=== PATIENT | male | born 1940 | race Caucasian/White ===

== ENCOUNTER 2019-03-29 10:44 | Outpatient (RCR) | payer MEDICARE, SELFPAY ==
[2018-12-29 13:05] LABS: Basophils Percent Auto 0.5 % (0.2-1.2); Eosinophils Absolute Auto 0.1 K/mm3 (0-0.3); Eosinophils Percent Auto 3.4 % (0-4.4); Hematocrit 39.1 % (42.0-52.0); Hemoglobin 12.5 g/dL (14.0-18.0); Immature Granulocyte Absolute 0.01 K/mm3 (0.00-0.031); Immature Granulocyte Percent A 0.2 % (0-0.5); Lymphocytes Absolute Auto 1.49 K/mm3 (0.9-3.2); Lymphocytes Percent Auto 35.8 % (18.3-44.2); Mean Corpuscular Hemoglobin 27.2 pg (26-34); Monocytes Absolute Auto 0.4 K/mm3 (0.1-0.6); Monocytes Percent Auto 9.4 % (2.6-8.5); Neutrophils Absolute Auto 2.1 K/mm3 (1.3-6.7); Neutrophils Percent Auto 50.7 % (45.5-73.1); Platelet Count Result 134 k/mm3 (150-375); White Blood Count 4.2 K/mm3 (4.5-10.0)
[2018-12-29 13:23] LABS: INR 1.9; Prothrombin Time 21.7 Seconds (11.1-14.7)
[2018-12-29 13:27] LABS: Albumin Level 3.8 g/dL (3.5-5.1); Blood Urea Nitrogen 34 mg/dL (9-20); Calcium 9.5 mg/dL (8.4-10.2); Carbon Dioxide 23 mmol/L (22-30); Chloride 102 mmol/L (98-107); Estimated Glomerular Filt Rate 49; Glucose 165 mg/dL (75-110); Potassium 3.6 mmol/L (3.4-5.0); Sodium 138 mmol/L (137-145)
[2019-01-01 07:00] LABS: Tacrolimus Prograf 3.4 mcg/L
[2019-01-25 16:37] LABS: Basophils Percent Auto 0.3 % (0.2-1.2); Eosinophils Absolute Auto 0.1 K/mm3 (0-0.3); Hematocrit 40.1 % (42.0-52.0); Hemoglobin 12.7 g/dL (14.0-18.0); Immature Granulocyte Absolute 0.01 K/mm3 (0.00-0.031); Immature Granulocyte Percent A 0.2 % (0-0.5); Lymphocytes Absolute Auto 1.11 K/mm3 (0.9-3.2); Lymphocytes Percent Auto 18.3 % (18.3-44.2); Mean Corpuscular HGB Conc 31.7 g/dl (32-36); Mean Corpuscular Hemoglobin 27.3 pg (26-34); Mean Corpuscular Volume 86.1 fl (80-100); Mean Platelet Volume 10.9 fl (7.4-10.4); Monocytes Absolute Auto 0.4 K/mm3 (0.1-0.6); Monocytes Percent Auto 6.4 % (2.6-8.5); Neutrophils Absolute Auto 4.5 K/mm3 (1.3-6.7); Neutrophils Percent Auto 73.8 % (45.5-73.1); Platelet Count Result 137 k/mm3 (150-375); Red Blood Count 4.66 M/mm3 (4.6-6.20); Red Cell Distribution Width 15.2 % (11.5-14.5); White Blood Count 6.1 K/mm3 (4.5-10.0)
[2019-01-25 16:44] LABS: INR 2.5; Prothrombin Time 26.7 Seconds (11.1-14.7)
[2019-01-25 16:46] LABS: Albumin Level 4.2 g/dL (3.5-5.1); Blood Urea Nitrogen 49 mg/dL (9-20); Carbon Dioxide 20 mmol/L (22-30); Chloride 104 mmol/L (98-107); Estimated Glomerular Filt Rate 53; Glucose 138 mg/dL (75-110); Phosphorus 3.5 mg/dL (2.5-4.5); Potassium 4.1 mmol/L (3.4-5.0); Sodium 138 mmol/L (137-145); Uric Acid 7.4 mg/dL (3.5-8.5)
[2019-01-27 17:49] LABS: Tacrolimus Prograf 6.7 mcg/L
[2019-02-24 13:35] LABS: Basophils Percent Auto 0.6 % (0.2-1.2); Eosinophils Absolute Auto 0.1 K/mm3 (0-0.3); Eosinophils Percent Auto 2.2 % (0-4.4); Hemoglobin 12.6 g/dL (14.0-18.0); Immature Granulocyte Absolute 0.01 K/mm3 (0.00-0.031); Immature Granulocyte Percent A 0.2 % (0-0.5); Lymphocytes Absolute Auto 2.18 K/mm3 (0.9-3.2); Lymphocytes Percent Auto 40.3 % (18.3-44.2); Mean Corpuscular HGB Conc 32.3 g/dl (32-36); Mean Corpuscular Hemoglobin 27.9 pg (26-34); Mean Corpuscular Volume 86.5 fl (80-100); Mean Platelet Volume 11.9 fl (7.4-10.4); Monocytes Absolute Auto 0.6 K/mm3 (0.1-0.6); Monocytes Percent Auto 10.9 % (2.6-8.5); Neutrophils Absolute Auto 2.5 K/mm3 (1.3-6.7); Neutrophils Percent Auto 45.8 % (45.5-73.1); Platelet Count Result 141 k/mm3 (150-375); Red Blood Count 4.51 M/mm3 (4.6-6.20); Red Cell Distribution Width 14.9 % (11.5-14.5); White Blood Count 5.4 K/mm3 (4.5-10.0)
[2019-02-24 13:56] LABS: Alanine Aminotransferase 19 U/L (4-50); Albumin Level 3.9 g/dL (3.5-5.1); Alkaline Phosphatase 58 U/L (38-126); Aspartate Amino Transferase 31 U/L (17-59); Bilirubin,Total 0.6 mg/dL (0.2-1.3); Blood Urea Nitrogen 78 mg/dL (9-20); Calcium 9.8 mg/dL (8.4-10.2); Carbon Dioxide 24 mmol/L (22-30); Chloride 96 mmol/L (98-107); Cholesterol 195 mg/dL (0-200); Estimated Glomerular Filt Rate 32; Glucose 129 mg/dL (75-110); HDL Direct 31 mg/dL; Phosphorus 3.7 mg/dL (2.5-4.5); Potassium 3.4 mmol/L (3.4-5.0); Sodium 132 mmol/L (137-145); Triglycerides 342 mg/dL (<150); Uric Acid 8.3 mg/dL (3.5-8.5)
[2019-02-24 14:01] LABS: INR 2.6; Prothrombin Time 27.5 Seconds (11.1-14.7)
[2019-02-24 14:06] LABS: LDL Cholesterol Direct 66 mg/dL
[2019-03-29 13:21] LABS: INR 2.4; Prothrombin Time 25.6 Seconds (11.1-14.7)
== END 2019-03-29 23:59 | disposition home or self-care (01) ==
LOC: ANHWCLAB 10:44
PROVIDERS: PCP Internal Medicine
DX: Z51.81 Encounter for therapeutic drug level monitoring (principal); Z94.0 Kidney transplant status; I48.0 Paroxysmal atrial fibrillation; E78.49 Other hyperlipidemia; M80.80XD Other osteoporosis with current pathological fracture, unspecified site, subsequent encounter for fracture with routine healing; M1A.09X0 Idiopathic chronic gout, multiple sites, without tophus (tophi); Z79.01 Long term (current) use of anticoagulants; Z79.899 Other long term (current) drug therapy
CPT/HCPCS: 36415; 80053; 80061; 80069; 80197; 84100; 84550; 85025; 85610

== ENCOUNTER 2019-06-24 10:57 | Outpatient (RCR) | payer MEDICARE, SELFPAY ==
[2019-03-30 13:19] LABS: Basophils Percent Auto 0.4 % (0.2-1.2); Eosinophils Absolute Auto 0.1 K/mm3 (0-0.3); Eosinophils Percent Auto 2.2 % (0-4.4); Hematocrit 38.6 % (42.0-52.0); Hemoglobin 12.3 g/dL (14.0-18.0); Lymphocytes Absolute Auto 1.89 K/mm3 (0.9-3.2); Lymphocytes Percent Auto 42.4 % (18.3-44.2); Mean Corpuscular HGB Conc 31.9 g/dl (32-36); Mean Corpuscular Hemoglobin 27.8 pg (26-34); Mean Corpuscular Volume 87.1 fl (80-100); Mean Platelet Volume 11.4 fl (7.4-10.4); Monocytes Absolute Auto 0.4 K/mm3 (0.1-0.6); Neutrophils Absolute Auto 2.1 K/mm3 (1.3-6.7); Platelet Count Result 130 k/mm3 (150-375); Red Blood Count 4.43 M/mm3 (4.6-6.20); Red Cell Distribution Width 15.1 % (11.5-14.5); White Blood Count 4.5 K/mm3 (4.5-10.0)
[2019-03-30 13:28] LABS: Blood Urea Nitrogen 41 mg/dL (9-20); Carbon Dioxide 21 mmol/L (22-30); Chloride 98 mmol/L (98-107); Estimated Glomerular Filt Rate 53; Glucose 158 mg/dL (75-110); Phosphorus 3.5 mg/dL (2.5-4.5); Potassium 4.6 mmol/L (3.4-5.0); Sodium 133 mmol/L (137-145); Uric Acid 7.1 mg/dL (3.5-8.5)
[2019-04-02 08:38] LABS: Tacrolimus Prograf 4.4 mcg/L
[2019-04-25 13:31] LABS: Basophils Percent Auto 0.2 % (0.2-1.2); Eosinophils Absolute Auto 0.2 K/mm3 (0-0.3); Eosinophils Percent Auto 3.1 % (0-4.4); Hematocrit 36.5 % (42.0-52.0); Hemoglobin 11.5 g/dL (14.0-18.0); Immature Granulocyte Absolute 0.01 K/mm3 (0.00-0.031); Immature Granulocyte Percent A 0.2 % (0-0.5); Lymphocytes Absolute Auto 1.45 K/mm3 (0.9-3.2); Lymphocytes Percent Auto 30.3 % (18.3-44.2); Mean Corpuscular HGB Conc 31.5 g/dl (32-36); Mean Corpuscular Hemoglobin 27.4 pg (26-34); Mean Corpuscular Volume 87.1 fl (80-100); Mean Platelet Volume 11.4 fl (7.4-10.4); Monocytes Absolute Auto 0.4 K/mm3 (0.1-0.6); Neutrophils Absolute Auto 2.7 K/mm3 (1.3-6.7); Neutrophils Percent Auto 57.2 % (45.5-73.1); Platelet Count Result 145 k/mm3 (150-375); Red Blood Count 4.19 M/mm3 (4.6-6.20); Red Cell Distribution Width 15.2 % (11.5-14.5); White Blood Count 4.8 K/mm3 (4.5-10.0)
[2019-04-25 13:39] LABS: Blood Urea Nitrogen 53 mg/dL (9-20); Calcium 9.7 mg/dL (8.4-10.2); Carbon Dioxide 23 mmol/L (22-30); Chloride 101 mmol/L (98-107); Estimated Glomerular Filt Rate 45; Glucose 157 mg/dL (75-110); Potassium 3.9 mmol/L (3.4-5.0); Sodium 135 mmol/L (137-145); Uric Acid 6.3 mg/dL (3.5-8.5)
[2019-04-25 13:50] LABS: INR 1.7; Prothrombin Time 19.3 Seconds (11.1-14.7)
[2019-04-28 00:08] LABS: Tacrolimus Prograf 4.4 mcg/L
[2019-05-27 13:02] LABS: Basophils Percent Auto 0.5 % (0.2-1.2); Eosinophils Absolute Auto 0.1 K/mm3 (0-0.3); Hematocrit 39.7 % (42.0-52.0); Hemoglobin 12.3 g/dL (14.0-18.0); Immature Granulocyte Absolute 0.01 K/mm3 (0.00-0.031); Immature Granulocyte Percent A 0.2 % (0-0.5); Lymphocytes Absolute Auto 2.46 K/mm3 (0.9-3.2); Lymphocytes Percent Auto 41.1 % (18.3-44.2); Mean Corpuscular Hemoglobin 27.7 pg (26-34); Mean Corpuscular Volume 89.4 fl (80-100); Mean Platelet Volume 10.9 fl (7.4-10.4); Monocytes Absolute Auto 0.6 K/mm3 (0.1-0.6); Monocytes Percent Auto 9.2 % (2.6-8.5); Neutrophils Absolute Auto 2.8 K/mm3 (1.3-6.7); Platelet Count Result 130 k/mm3 (150-375); Red Blood Count 4.44 M/mm3 (4.6-6.20); Red Cell Distribution Width 15.4 % (11.5-14.5)
[2019-05-27 13:08] LABS: Alanine Aminotransferase 20 U/L (4-50); Albumin Level 4.2 g/dL (3.5-5.1); Alkaline Phosphatase 47 U/L (38-126); Aspartate Amino Transferase 33 U/L (17-59); Bilirubin,Total 0.6 mg/dL (0.2-1.3); Blood Urea Nitrogen 62 mg/dL (9-20); Calcium 9.4 mg/dL (8.4-10.2); Carbon Dioxide 23 mmol/L (22-30); Chloride 104 mmol/L (98-107); Cholesterol 177 mg/dL (0-200); Estimated Glomerular Filt Rate 45; Glucose 121 mg/dL (75-110); HDL Direct 39 mg/dL; Phosphorus 3.8 mg/dL (2.5-4.5); Potassium 3.9 mmol/L (3.4-5.0); Sodium 136 mmol/L (137-145); Triglycerides 169 mg/dL (<150); Uric Acid 5.1 mg/dL (3.5-8.5)
[2019-05-27 13:10] LABS: Platelet Estimate Decreased (Adequate)
[2019-05-27 13:11] LABS: INR 1.9; Prothrombin Time 21.1 Seconds (11.1-14.7)
[2019-05-27 13:19] LABS: LDL Cholesterol Direct 77 mg/dL
[2019-05-28 17:24] LABS: Tacrolimus Prograf 3.4 mcg/L
[2019-06-24 11:38] LABS: Basophils Percent Auto 0.2 % (0.2-1.2); Eosinophils Absolute Auto 0.1 K/mm3 (0-0.3); Eosinophils Percent Auto 2.9 % (0-4.4); Hemoglobin 12.8 g/dL (14.0-18.0); Immature Granulocyte Absolute 0.01 K/mm3 (0.00-0.031); Immature Granulocyte Percent A 0.2 % (0-0.5); Lymphocytes Absolute Auto 1.32 K/mm3 (0.9-3.2); Lymphocytes Percent Auto 31.6 % (18.3-44.2); Mean Corpuscular HGB Conc 30.5 g/dl (32-36); Mean Corpuscular Hemoglobin 28.2 pg (26-34); Mean Corpuscular Volume 92.5 fl (80-100); Mean Platelet Volume 10.6 fl (7.4-10.4); Monocytes Absolute Auto 0.3 K/mm3 (0.1-0.6); Monocytes Percent Auto 7.7 % (2.6-8.5); Neutrophils Absolute Auto 2.4 K/mm3 (1.3-6.7); Neutrophils Percent Auto 57.4 % (45.5-73.1); Platelet Count Result 100 k/mm3 (150-375); Red Blood Count 4.54 M/mm3 (4.6-6.20); Red Cell Distribution Width 16.1 % (11.5-14.5); White Blood Count 4.2 K/mm3 (4.5-10.0)
[2019-06-24 12:40] LABS: Albumin Level 4.1 g/dL (3.5-5.1); Blood Urea Nitrogen 53 mg/dL (9-20); Calcium 9.6 mg/dL (8.4-10.2); Carbon Dioxide 23 mmol/L (22-30); Chloride 103 mmol/L (98-107); Estimated Glomerular Filt Rate 49; Glucose 144 mg/dL (75-110); Phosphorus 3.7 mg/dL (2.5-4.5); Sodium 134 mmol/L (137-145); Uric Acid 4.7 mg/dL (3.5-8.5)
[2019-06-24 12:42] LABS: INR 2.1
[2019-06-27 15:57] LABS: Creatine Kinase 73 U/L (55-170)
[2019-06-28 07:11] LABS: Tacrolimus Prograf 3.2 mcg/L
== END 2019-06-28 23:59 | disposition home or self-care (01) ==
LOC: ANHWCLAB 10:57
PROVIDERS: PCP Internal Medicine
DX: Z51.81 Encounter for therapeutic drug level monitoring (principal); Z94.0 Kidney transplant status; E78.49 Other hyperlipidemia; M1A.09X0 Idiopathic chronic gout, multiple sites, without tophus (tophi); Z79.01 Long term (current) use of anticoagulants; Z79.899 Other long term (current) drug therapy
CPT/HCPCS: 36415; 80053; 80061; 80069; 80197; 82550; 84100; 84550; 85025; 85610

== ENCOUNTER 2019-08-15 10:12 | Outpatient (CLI) | payer MEDICARE, SELFPAY ==
[2019-08-15 14:16] LABS: Blood Urea Nitrogen 44 mg/dL (9-20); Calcium 9.1 mg/dL (8.4-10.2); Carbon Dioxide 23 mmol/L (22-30); Chloride 107 mmol/L (98-107); Estimated Glomerular Filt Rate 49; Glucose 165 mg/dL (75-110); Potassium 4.2 mmol/L (3.4-5.0); Sodium 136 mmol/L (137-145)
== END 2019-08-15 10:13 | disposition home or self-care (01) ==
PROVIDERS: PCP Internal Medicine
DX: I50.32 Chronic diastolic (congestive) heart failure (principal)
CPT/HCPCS: 36415; 80048

== ENCOUNTER 2019-10-25 11:35 | Outpatient (RCR) | payer MEDICARE, SELFPAY ==
[2019-07-27 12:37] LABS: Basophils Percent Auto 0.4 % (0.2-1.2); Eosinophils Absolute Auto 0.1 K/mm3 (0-0.3); Hematocrit 35.7 % (42.0-52.0); Hemoglobin 11.5 g/dL (14.0-18.0); Immature Granulocyte Absolute 0.01 K/mm3 (0.00-0.031); Immature Granulocyte Percent A 0.2 % (0-0.5); Lymphocytes Absolute Auto 1.94 K/mm3 (0.9-3.2); Lymphocytes Percent Auto 41.4 % (18.3-44.2); Mean Corpuscular HGB Conc 32.2 g/dl (32-36); Mean Corpuscular Hemoglobin 28.5 pg (26-34); Mean Corpuscular Volume 88.4 fl (80-100); Mean Platelet Volume 11.4 fl (7.4-10.4); Monocytes Absolute Auto 0.4 K/mm3 (0.1-0.6); Monocytes Percent Auto 9.2 % (2.6-8.5); Neutrophils Absolute Auto 2.2 K/mm3 (1.3-6.7); Neutrophils Percent Auto 45.8 % (45.5-73.1); Platelet Count Result 118 k/mm3 (150-375); Red Blood Count 4.04 M/mm3 (4.6-6.20); Red Cell Distribution Width 15.9 % (11.5-14.5); White Blood Count 4.7 K/mm3 (4.5-10.0)
[2019-07-27 12:47] LABS: INR 1.7; Prothrombin Time 19.8 Seconds (11.1-14.7)
[2019-07-27 12:49] LABS: Albumin Level 4.1 g/dL (3.5-5.1); Blood Urea Nitrogen 46 mg/dL (9-20); Calcium 9.5 mg/dL (8.4-10.2); Carbon Dioxide 23 mmol/L (22-30); Chloride 107 mmol/L (98-107); Estimated Glomerular Filt Rate 49; Glucose 110 mg/dL (75-110); Phosphorus 3.6 mg/dL (2.5-4.5); Potassium 3.8 mmol/L (3.4-5.0); Sodium 138 mmol/L (137-145)
[2019-07-29 15:33] LABS: Tacrolimus Prograf 6.2 mcg/L
[2019-08-24 11:13] LABS: Basophils Percent Auto 0.4 % (0.2-1.2); Eosinophils Absolute Auto 0.2 K/mm3 (0-0.3); Eosinophils Percent Auto 3.7 % (0-4.4); Hematocrit 36.3 % (42.0-52.0); Hemoglobin 11.7 g/dL (14.0-18.0); Immature Granulocyte Absolute 0.01 K/mm3 (0.00-0.031); Immature Granulocyte Percent A 0.2 % (0-0.5); Lymphocytes Absolute Auto 1.78 K/mm3 (0.9-3.2); Lymphocytes Percent Auto 36.8 % (18.3-44.2); Mean Corpuscular HGB Conc 32.2 g/dl (32-36); Mean Corpuscular Hemoglobin 28.7 pg (26-34); Mean Platelet Volume 11.4 fl (7.4-10.4); Monocytes Absolute Auto 0.5 K/mm3 (0.1-0.6); Neutrophils Absolute Auto 2.3 K/mm3 (1.3-6.7); Neutrophils Percent Auto 47.9 % (45.5-73.1); Platelet Count Result 130 k/mm3 (150-375); Red Blood Count 4.08 M/mm3 (4.6-6.20); Red Cell Distribution Width 15.6 % (11.5-14.5); White Blood Count 4.8 K/mm3 (4.5-10.0)
[2019-08-24 11:22] LABS: INR 2.3; Prothrombin Time 25.1 Seconds (11.1-14.7)
[2019-08-24 11:23] LABS: Alanine Aminotransferase 33 U/L (4-50); Albumin Level 4.4 g/dL (3.5-5.1); Alkaline Phosphatase 52 U/L (38-126); Aspartate Amino Transferase 35 U/L (17-59); Bilirubin,Total 0.6 mg/dL (0.2-1.3); Blood Urea Nitrogen 50 mg/dL (9-20); Calcium 9.6 mg/dL (8.4-10.2); Carbon Dioxide 25 mmol/L (22-30); Chloride 102 mmol/L (98-107); Cholesterol 177 mg/dL (0-200); Estimated Glomerular Filt Rate 42; Glucose 134 mg/dL (75-110); HDL Direct 38 mg/dL; Phosphorus 3.6 mg/dL (2.5-4.5); Potassium 4.2 mmol/L (3.4-5.0); Sodium 135 mmol/L (137-145); Triglycerides 154 mg/dL (<150)
[2019-08-24 11:33] LABS: LDL Cholesterol Direct 80 mg/dL
[2019-08-25 23:06] LABS: Tacrolimus Prograf 3.5 mcg/L
[2019-09-27 13:09] LABS: Basophils Percent Auto 0.2 % (0.2-1.2); Eosinophils Absolute Auto 0.2 K/mm3 (0-0.3); Eosinophils Percent Auto 2.7 % (0-4.4); Hematocrit 35.1 % (42.0-52.0); Hemoglobin 11.3 g/dL (14.0-18.0); Immature Granulocyte Absolute 0.02 K/mm3 (0.00-0.031); Immature Granulocyte Percent A 0.4 % (0-0.5); Lymphocytes Absolute Auto 1.34 K/mm3 (0.9-3.2); Mean Corpuscular HGB Conc 32.2 g/dl (32-36); Mean Corpuscular Hemoglobin 28.2 pg (26-34); Mean Corpuscular Volume 87.5 fl (80-100); Mean Platelet Volume 11.3 fl (7.4-10.4); Monocytes Absolute Auto 0.5 K/mm3 (0.1-0.6); Monocytes Percent Auto 8.4 % (2.6-8.5); Neutrophils Absolute Auto 3.6 K/mm3 (1.3-6.7); Neutrophils Percent Auto 64.3 % (45.5-73.1); Platelet Count Result 132 k/mm3 (150-375); Red Blood Count 4.01 M/mm3 (4.6-6.20); Red Cell Distribution Width 14.7 % (11.5-14.5); White Blood Count 5.6 K/mm3 (4.5-10.0)
[2019-09-27 13:20] LABS: INR 1.3; Prothrombin Time 15.8 Seconds (11.1-14.7)
[2019-09-27 13:22] LABS: Alanine Aminotransferase 31 U/L (4-50); Albumin Level 4.2 g/dL (3.5-5.1); Alkaline Phosphatase 51 U/L (38-126); Anion Gap 13.7 mmol/L (7-16); Aspartate Amino Transferase 34 U/L (17-59); Bilirubin,Total 0.6 mg/dL (0.2-1.3); Blood Urea Nitrogen 53 mg/dL (9-20); Calcium 9.2 mg/dL (8.4-10.2); Carbon Dioxide 25 mmol/L (22-30); Chloride 99 mmol/L (98-107); Cholesterol 164 mg/dL (0-200); Estimated Glomerular Filt Rate 39; Glucose 219 mg/dL (75-110); HDL Direct 36 mg/dL; Phosphorus 3.2 mg/dL (2.5-4.5); Potassium 3.7 mmol/L (3.4-5.0); Sodium 134 mmol/L (137-145); Triglycerides 161 mg/dL (<150); Uric Acid 4.8 mg/dL (3.5-8.5)
[2019-09-27 13:33] LABS: LDL Cholesterol Direct 80 mg/dL
[2019-09-30 00:31] LABS: Tacrolimus Prograf 6.6 mcg/L
[2019-10-25 12:17] LABS: Basophils Percent Auto 0.5 % (0.2-1.2); Eosinophils Absolute Auto 0.2 K/mm3 (0-0.3); Eosinophils Percent Auto 3.2 % (0-4.4); Hematocrit 38.6 % (42.0-52.0); Hemoglobin 12.5 g/dL (14.0-18.0); Immature Granulocyte Absolute 0.02 K/mm3 (0.00-0.031); Immature Granulocyte Percent A 0.3 % (0-0.5); Lymphocytes Absolute Auto 1.77 K/mm3 (0.9-3.2); Mean Corpuscular HGB Conc 32.4 g/dl (32-36); Mean Corpuscular Hemoglobin 28.3 pg (26-34); Mean Corpuscular Volume 87.3 fl (80-100); Mean Platelet Volume 11.7 fl (7.4-10.4); Monocytes Absolute Auto 0.5 K/mm3 (0.1-0.6); Monocytes Percent Auto 7.9 % (2.6-8.5); Neutrophils Percent Auto 61.1 % (45.5-73.1); Platelet Count Result 153 k/mm3 (150-375); Red Blood Count 4.42 M/mm3 (4.6-6.20); Red Cell Distribution Width 15.2 % (11.5-14.5); White Blood Count 6.6 K/mm3 (4.5-10.0)
[2019-10-25 12:25] LABS: INR 2.6; Prothrombin Time 27.2 Seconds (11.1-14.7)
[2019-10-25 12:33] LABS: Alanine Aminotransferase 31 U/L (4-50); Albumin Level 4.4 g/dL (3.5-5.1); Alkaline Phosphatase 62 U/L (38-126); Anion Gap 10 mmol/L (8-16); Aspartate Amino Transferase 36 U/L (17-59); Bilirubin,Total 0.7 mg/dL (0.2-1.3); Blood Urea Nitrogen 64 mg/dL (9-20); Calcium 9.5 mg/dL (8.4-10.2); Carbon Dioxide 23 mmol/L (22-30); Chloride 103 mmol/L (98-107); Cholesterol 187 mg/dL (0-200); Estimated Glomerular Filt Rate 36; Glucose 185 mg/dL (75-110); HDL Direct 35 mg/dL; Phosphorus 3.6 mg/dL (2.5-4.5); Sodium 136 mmol/L (137-145); Triglycerides 257 mg/dL (<150)
[2019-10-25 12:44] LABS: LDL Cholesterol Direct 77 mg/dL
[2019-10-27 07:53] LABS: Tacrolimus Prograf 8.1 mcg/L
== END 2019-10-25 23:59 | disposition home or self-care (01) ==
LOC: ANHLAB 11:35
PROVIDERS: PCP Internal Medicine; Referring Provider Internal Medicine
DX: I48.0 Paroxysmal atrial fibrillation (principal); E78.49 Other hyperlipidemia; M1A.09X0 Idiopathic chronic gout, multiple sites, without tophus (tophi); Z94.0 Kidney transplant status; Z79.899 Other long term (current) drug therapy
CPT/HCPCS: 36415; 80053; 80061; 80069; 80197; 84100; 84550; 85025; 85610

== ENCOUNTER 2019-10-25 11:37 | Outpatient (CLI) | payer MEDICARE, SELFPAY ==
[2019-10-25 12:41] LABS: Hemoglobin A1C 7.5 % (<5.7)
== END 2019-10-25 11:38 | disposition home or self-care (01) ==
PROVIDERS: PCP Internal Medicine; Visit Provider Internal Medicine
DX: I50.33 Acute on chronic diastolic (congestive) heart failure (principal); Z79.899 Other long term (current) drug therapy; R73.09 Other abnormal glucose
CPT/HCPCS: 36415; 80053; 80061; 80197; 83036; 84100; 85025; 85610

== ENCOUNTER 2019-11-04 19:04 | Emergency (ER) | payer MEDICARE, SELFPAY ==
--- NOTE | ~2019-11-04 | CT_ITS ---
EXAMINATION: CT brain wo con, CT cervical spine wo con EXAM DATE: 11/04/2019 20:24 INDICATION: Fall, head laceration. TECHNIQUE: Spiral CT of the head was performed without contrast. Axial, coronal and sagittal images were reviewed. Spiral CT of the cervical spine was performed without contrast. Axial images were rev iewed. Coronal and sagittal reformatted images were also reviewed. The dose-length product (DLP) fo r this examination was 681.00 (accession [id number]), 475.26 (accession [id number]) mGy-cm. The exposure was tailored according to patient size, and iterative reconstruction (ASIR) was used as additional dose reduction technique. Comparison is made to prior examination from 06/12/2016. FINDINGS: HEAD CT: There is moderate-sized acute subdural hematoma along the anteriorly falx, probably on both sides. Thickest region measures about 1.2 cm. There is no acute intraparenchymal hemorrhage. No evid ence of intraparenchymal brain mass lesion. No evidence of acute infarction. There is mild periventr icular and subcortical hypodensity, nonspecific but probably related to small vessel ischemic disease . There is mild prominence of the sulci and ventricles related to cerebral atrophy. There is intr acranial carotid arteriosclerosis. There is no mass effect or midline shift. There is no obstructiv e hydrocephalus suspected. There are no acute calvarial fractures. The orbits are unremarkable. Mo derate sized left vertex scalp hematoma. The visualized sinuses and mastoid air cells are well aerate d. CERVICAL CT: Moderate to severe cervical spondylosis. There is no evidence of acute cervical fracture . The odontoid process is intact. Pre-dens space is normal. Prevertebral soft tissue is normal. T here are no soft tissue abnormalities identified. There is no disc space widening or traumatic verte bral body subluxation suspected. Vertebral body and disc heights are well-maintained. A detailed l evel by level evaluation of spondylosis can be added as addendum if requested. IMPRESSION: 1. Moderate-sized acute subdural hematoma along the falx. 2. Left scalp laceration, hematoma. 3. Cervical spondylosis without acute findings. I discussed subdural hematoma with Nabil Bobo PA-C at 11/04/2019 20:40 CDT. Reviewed, dictated and finalized at location A. IMPRESSION: 1. Moderate-sized acute subdural hematoma along the falx. 2. Left scalp laceration, hematoma. 3. Cervical spondylosis without acute findings. I discussed subdural hematoma with Nabil Bobo PA-C at 11/04/2019 20:40 CD T.
--- NOTE | ~2019-11-04 | XR_ITS ---
EXAMINATION: XR chest 1V portable EXAM DATE: 11/04/2019 20:54 INDICATION: Fall down stairs, head injury. TECHNIQUE: Portable AP frontal chest x-ray was obtained. Comparison is made to prior examination from 03/10/2017. FINDINGS: Sternotomy wires are present without findings to suggest sternal dehiscence. Cardiac valve replacement. There is single lead pacemaker/AICD device seen with tip projecting over the expected lo cation of right ventricle. The cardiac silhouette is enlarged. There is pulmonary vascular congestion . Some prominent reticulation, could be chronic interstitial lung disease and/or mild pulmonary edema . Please clinically correlate. There are cholecystectomy clips. There is no pneumothorax suspected. T here are no pleural effusions. IMPRESSION: 1. Congestive changes, possible mild CHF exacerbation. 2. Possible underlying chronic interstitial lung disease. Reviewed, dictated and finalized at location A.
[2019-11-04 19:16] VITALS: BP 176/91; PULSE 64; RESP 16; TEMP 37; O2SAT 99
--- NOTE | 2019-11-04 19:53 | ECG_ITS ---
Measurements Intervals [place] Rate: 66 P: VT: 0 QRS: -55 QRSD: 211 T: 106 QT: 519 QTc: 547 Interpretive Statements ELECTRONIC VENTRICULAR PACEMAKER NO FURTHER INTERPRETATION IS POSSIBLE ATYPICAL ECG Electronically Signed On 11-05-2019 7:38:39 CDT by Maldonado Rizvi D.O.
--- NOTE | 2019-11-04 19:54 | ED.FALL ---
HPI - Fall General Chief Complaint: Fall <RAINA Engladn Last Filed: 11/04/19 21:27> Stated Complaint: FALL HEAD LAC <RAINA England Last Filed: 11/04/19 21:27> Time Seen by Provider: 11/04/19 19:47 <RAINA England Last Filed: 11/04/19 21:27> Source: patient <RAINA England Last Filed: 11/04/19 21:27> Mode of arrival: ambulatory <RAINA England Last Filed: 11/04/19 21:27> Limitations: no limitations <RAINA England Last Filed: 11/04/19 21:27> History of Present Illness HPI Narrative: Patient is an 79-year-old male who presents to emergency department for evaluation of posterior head trauma patient reportedly missed stepped falling striking the back of his head is amnestic to the etiology believes he misstep but also is unsure as to loss of consciousness patient's got to him promptly noting that he was alert and oriented but does have become slightly more confused since patient presents per EMS. Patient is on warfarin for atrial fibrillation patient was recently released from [facility] after having a medication reaction that resulted in worsening heart failure. Patient is a kidney transplant recipient. Patient is managed at [facility]. Patient's only complaint is posterior head pain presents with a GCS of 15. Patient is answering questions appropriately on arrival. notes that she felt as though her was becoming slightly more confused after the head injury <RAINA England Last Filed: 11/04/19 21:27> Related Data Home Medications: Home Medications Medication Instructions Recorded Confirmed azelastine 137 mcg (0.1 %) nasal 1 spray NASAL Q12H 01/17/19 11/02/19 spray aerosol ezetimibe 10 mg tablet 10 mg PO DAILY 01/17/19 11/02/19 prednisone 5 mg tablet 5 mg PO DAILY 01/17/19 11/02/19 tacrolimus 0.75 mg tablet,extended 0.75 mg PO DAILY 01/17/19 11/02/19 release 24 hr warfarin 6 mg tablet 6 mg PO 5XW 01/17/19 11/02/19 acetaminophen 500 mg tablet 500 mg PO Q4H PRN 01/18/19 11/02/19 amoxicillin 500 mg capsule 500 mg PO Q12H 01/18/19 11/02/19 cholecalciferol (vitamin D3) 50 2,000 unit PO DAILY 01/18/19 11/02/19 mcg (2,000 unit) capsule loratadine 10 mg tablet 10 mg PO DAILY 01/18/19 11/02/19 sour hoover extract 1,000 mg mg PO 01/18/19 11/02/19 capsule icosapent ethyl 1 gram capsule 2 gm PO BID 04/06/19 11/02/19 allopurinol 100 mg tablet 300 mg PO DAILY tablet 10/25/19 11/02/19 carvedilol 6.25 mg tablet 6.25 mg PO Q12H 10/25/19 11/02/19 colchicine 0.6 mg tablet 0.6 mg PO .MWF tablet 10/25/19 11/02/19 furosemide 40 mg tablet 80 mg PO BID tablet 10/25/19 11/02/19 gabapentin 100 mg capsule 100 mg PO BID 10/25/19 11/02/19 hydralazine 50 mg tablet 25 mg PO TID tablet 10/25/19 11/02/19 isosorbide dinitrate 30 mg tablet 30 mg PO TID 10/25/19 11/02/19 multivitamin 1 tablet PO DAILY 10/25/19 11/02/19 potassium chloride 20 mEq 40 meq PO DAILY tablet 10/25/19 11/02/19 tablet,extended release flash glucose sensor #1 each 11/02/19 11/02/19 <Nabil Bobo PA-C - Last Filed: 11/04/19 21:27> Allergies/Adverse Reactions: Allergies Allergy/AdvReac Type Severity Reaction Status Date / Time Heparin Analogues Allergy Unknown unknown Verified 10/25/19 10:24 morphine Allergy Unknown unknown Verified 10/25/19 10:24 <Nabil Bobo PA-C - Last Filed: 11/04/19 21:27> Review of Systems Review of Systems: All systems reviewed & are unremarkable except as noted in HPI and below <Nabil Bobo PA-C - Last Filed: 11/04/19 21:27> [facility] Past Medical History Medical History: Medical History A-fib Blindness of left eye BMI 30.0-30.9,adult BMI 31.0-31.9,adult Cellulitis of left lower extremity Dependent edema Depression Diastolic congestive heart failure DM type 2 (diabetes mellitus, type 2) Elevated hemoglobin A1c En
[2019-11-04 19:58] VITALS: BP 164/75; PULSE 60; RESP 16; O2SAT 98
[2019-11-04 20:14] LABS: Eosinophils Percent Auto 0.7 % (0-4.4); Hematocrit 34.6 % (42.0-52.0); Hemoglobin 11.3 g/dL (14.0-18.0); Immature Granulocyte Absolute 0.02 K/mm3 (0.00-0.031); Immature Granulocyte Percent A 0.3 % (0-0.5); Lymphocytes Absolute Auto 1.76 K/mm3 (0.9-3.2); Lymphocytes Percent Auto 29.6 % (18.3-44.2); Mean Corpuscular HGB Conc 32.7 g/dl (32-36); Mean Corpuscular Hemoglobin 28.4 pg (26-34); Mean Corpuscular Volume 86.9 fl (80-100); Mean Platelet Volume 11.4 fl (7.4-10.4); Monocytes Absolute Auto 0.4 K/mm3 (0.1-0.6); Monocytes Percent Auto 6.9 % (2.6-8.5); Neutrophils Absolute Auto 3.7 K/mm3 (1.3-6.7); Neutrophils Percent Auto 62.5 % (45.5-73.1); Platelet Count Result 130 k/mm3 (150-375); Red Blood Count 3.98 M/mm3 (4.6-6.20); Red Cell Distribution Width 15.1 % (11.5-14.5); White Blood Count 5.9 K/mm3 (4.5-10.0)
[2019-11-04 20:24] LABS: INR 2.2; Partial Thromboplastin Time 33.2 SECONDS (22.3-36.8); Prothrombin Time 24.3 Seconds (11.1-14.7)
[2019-11-04 20:25] LABS: Anion Gap 10 mmol/L (8-16); Blood Urea Nitrogen 74 mg/dL (9-20); Calcium 9.5 mg/dL (8.4-10.2); Carbon Dioxide 24 mmol/L (22-30); Chloride 102 mmol/L (98-107); Estimated CRCL calculation 35 ml/min; Estimated Glomerular Filt Rate 36; Glucose 175 mg/dL (75-110); Potassium 4.5 mmol/L (3.4-5.0); Sodium 136 mmol/L (137-145)
[2019-11-04] MEDS: SODIUM CHLORIDE 0.9% IV 250 ML 30 ML IV CONT (21:24)
[2019-11-04 21:30] VITALS: BP 134/72; PULSE 72; RESP 18; TEMP 36.7; O2SAT 98
--- NOTE | 2019-11-04 22:00 | PC.NURSE ---
fluids continued on floor. stop time per floor nurse.
== END 2019-11-04 21:31 | disposition short-term general hospital (02) ==
PROVIDERS: Emergency Medicine Emergency Medical Services; Emergency Provider Emergency Medicine; PCP Internal Medicine
DX: S06.5X9A Traumatic subdural hemorrhage with loss of consciousness of unspecified duration, initial encounter (principal); W01.0XXA Fall on same level from slipping, tripping and stumbling without subsequent striking against object, initial encounter; S01.91XA Laceration without foreign body of unspecified part of head, initial encounter; Z95.0 Presence of cardiac pacemaker; I48.91 Unspecified atrial fibrillation; E11.9 Type 2 diabetes mellitus without complications; M10.9 Gout, unspecified; Z79.01 Long term (current) use of anticoagulants; I50.30 Unspecified diastolic (congestive) heart failure; Z96.652 Presence of left artificial knee joint; Z94.0 Kidney transplant status
CPT/HCPCS: 36415; 70450; 71045; 72125; 80048; 85025; 85610; 85730; 86900; 86901; 93005; 96374; 99285; C9132; J7050

== ENCOUNTER 2019-11-18 14:07 | Outpatient (CLI) | payer MEDICARE, SELFPAY | END 2019-11-18 14:08 | disposition home or self-care (01) | PROVIDERS: PCP Internal Medicine | DX: I50.33 Acute on chronic diastolic (congestive) heart failure (principal) | CPT/HCPCS: 36415 ==

== ENCOUNTER 2019-11-21 12:07 | Outpatient (CLI) | payer MEDICARE, SELFPAY ==
[2019-11-21 13:43] LABS: Anion Gap 7 mmol/L (8-16); Blood Urea Nitrogen 71 mg/dL (9-20); Calcium 9.9 mg/dL (8.4-10.2); Carbon Dioxide 29 mmol/L (22-30); Chloride 102 mmol/L (98-107); Estimated Glomerular Filt Rate 39; Glucose 131 mg/dL (75-110); Potassium 4.1 mmol/L (3.4-5.0); Sodium 138 mmol/L (137-145)
== END 2019-11-21 12:08 | disposition home or self-care (01) ==
PROVIDERS: PCP Internal Medicine
DX: I50.33 Acute on chronic diastolic (congestive) heart failure (principal)
CPT/HCPCS: 36415; 80048

== ENCOUNTER 2020-01-25 15:16 | Outpatient (RCR) | payer MEDICARE, SELFPAY ==
[2019-11-02 14:12] LABS: Uric Acid 4.7 mg/dL (3.5-8.5)
[2019-12-02 11:38] LABS: Basophils Percent Auto 0.5 % (0.2-1.2); Eosinophils Absolute Auto 0.2 K/mm3 (0-0.3); Eosinophils Percent Auto 3.6 % (0-4.4); Hematocrit 34.6 % (42.0-52.0); Immature Granulocyte Absolute 0.01 K/mm3 (0.00-0.031); Immature Granulocyte Percent A 0.2 % (0-0.5); Lymphocytes Absolute Auto 1.86 K/mm3 (0.9-3.2); Lymphocytes Percent Auto 42.3 % (18.3-44.2); Mean Corpuscular HGB Conc 31.8 g/dl (32-36); Mean Corpuscular Hemoglobin 28.1 pg (26-34); Mean Corpuscular Volume 88.3 fl (80-100); Mean Platelet Volume 11.2 fl (7.4-10.4); Monocytes Absolute Auto 0.5 K/mm3 (0.1-0.6); Neutrophils Absolute Auto 1.8 K/mm3 (1.3-6.7); Neutrophils Percent Auto 41.4 % (45.5-73.1); Platelet Count Result 123 k/mm3 (150-375); Red Blood Count 3.92 M/mm3 (4.6-6.20); Red Cell Distribution Width 15.1 % (11.5-14.5); White Blood Count 4.4 K/mm3 (4.5-10.0)
[2019-12-02 11:49] LABS: Alanine Aminotransferase 15 U/L (4-50); Albumin Level 4.4 g/dL (3.5-5.1); Alkaline Phosphatase 61 U/L (38-126); Anion Gap 10 mmol/L (8-16); Aspartate Amino Transferase 32 U/L (17-59); Bilirubin,Total 0.7 mg/dL (0.2-1.3); Blood Urea Nitrogen 80 mg/dL (9-20); Calcium 9.4 mg/dL (8.4-10.2); Carbon Dioxide 26 mmol/L (22-30); Chloride 103 mmol/L (98-107); Cholesterol 137 mg/dL (0-200); Estimated Glomerular Filt Rate 36; Glucose 111 mg/dL (75-110); HDL Direct 30 mg/dL; Phosphorus 4.1 mg/dL (2.5-4.5); Potassium 4.3 mmol/L (3.4-5.0); Sodium 139 mmol/L (137-145); Triglycerides 129 mg/dL (<150); Uric Acid 4.5 mg/dL (3.5-8.5)
[2019-12-02 11:51] LABS: Prothrombin Time 13.2 Seconds (11.1-14.7)
[2019-12-02 12:00] LABS: LDL Cholesterol Direct 63 mg/dL
[2019-12-06 10:55] LABS: Tacrolimus Prograf 5.1 mcg/L
[2019-12-27 12:53] LABS: Basophils Percent Auto 0.2 % (0.2-1.2); Eosinophils Absolute Auto 0.2 K/mm3 (0-0.3); Eosinophils Percent Auto 3.2 % (0-4.4); Hematocrit 35.6 % (42.0-52.0); Hemoglobin 11.3 g/dL (14.0-18.0); Immature Granulocyte Absolute 0.01 K/mm3 (0.00-0.031); Immature Granulocyte Percent A 0.2 % (0-0.5); Lymphocytes Absolute Auto 1.34 K/mm3 (0.9-3.2); Lymphocytes Percent Auto 28.8 % (18.3-44.2); Mean Corpuscular HGB Conc 31.7 g/dl (32-36); Mean Corpuscular Hemoglobin 27.5 pg (26-34); Mean Corpuscular Volume 86.6 fl (80-100); Mean Platelet Volume 11.5 fl (7.4-10.4); Monocytes Absolute Auto 0.4 K/mm3 (0.1-0.6); Monocytes Percent Auto 7.5 % (2.6-8.5); Neutrophils Absolute Auto 2.8 K/mm3 (1.3-6.7); Neutrophils Percent Auto 60.1 % (45.5-73.1); Platelet Count Result 120 k/mm3 (150-375); Red Blood Count 4.11 M/mm3 (4.6-6.20); Red Cell Distribution Width 14.9 % (11.5-14.5); White Blood Count 4.7 K/mm3 (4.5-10.0)
[2019-12-27 13:01] LABS: Prothrombin Time 13.7 Seconds (11.1-14.7)
[2019-12-27 13:07] LABS: Albumin Level 4.4 g/dL (3.5-5.1); Anion Gap 8 mmol/L (8-16); Blood Urea Nitrogen 72 mg/dL (9-20); Calcium 9.6 mg/dL (8.4-10.2); Carbon Dioxide 27 mmol/L (22-30); Chloride 101 mmol/L (98-107); Estimated Glomerular Filt Rate 36; Glucose 130 mg/dL (75-110); Phosphorus 3.7 mg/dL (2.5-4.5); Potassium 4.2 mmol/L (3.4-5.0); Sodium 136 mmol/L (137-145); Uric Acid 4.5 mg/dL (3.5-8.5)
[2019-12-29 19:23] LABS: Tacrolimus Prograf 7.8 mcg/L
[2020-01-25 16:12] LABS: INR 1.7; Prothrombin Time 20.1 Seconds (11.1-14.7)
[2020-01-25 16:17] LABS: Basophils Percent Auto 0.4 % (0.2-1.2); Eosinophils Absolute Auto 0.1 K/mm3 (0-0.3); Eosinophils Percent Auto 1.5 % (0-4.4); Hematocrit 33.3 % (42.0-52.0); Hemoglobin 10.7 g/dL (14.0-18.0); Immature Granulocyte Absolute 0.01 K/mm3 (0.00-0.031); Immature Granulocyte Percent A 0.2 % (0-0.5); Lymphocytes Absolute Auto 1.17 K/mm3 (0.9-3.2); Lymphocytes Percent Auto 25.8 % (18.3-44.2); Mean Corpuscular HGB Conc 32.1 g/dl (32-36); Mean Corpuscular Hemoglobin 27.7 pg (26-34); Mean Corpuscular Volume 86.3 fl (80-100); Monocytes Absolute Auto 0.3 K/mm3 (0.1-0.6); Monocytes Percent Auto 7.1 % (2.6-8.5); Neutrophils Absolute Auto 2.9 K/mm3 (1.3-6.7); Platelet Count Result 102 k/mm3 (150-375); Red Blood Count 3.86 M/mm3 (4.6-6.20); Red Cell Distribution Width 15.5 % (11.5-14.5); White Blood Count 4.5 K/mm3 (4.5-10.0)
[2020-01-25 16:21] LABS: Anion Gap 10 mmol/L (8-16); Blood Urea Nitrogen 73 mg/dL (9-20); Calcium 9.2 mg/dL (8.4-10.2); Carbon Dioxide 22 mmol/L (22-30); Chloride 101 mmol/L (98-107); Estimated Glomerular Filt Rate 39; Glucose 130 mg/dL (75-110); Phosphorus 4.3 mg/dL (2.5-4.5); Sodium 133 mmol/L (137-145); Uric Acid 4.5 mg/dL (3.5-8.5)
[2020-01-28 00:27] LABS: Tacrolimus Prograf 7.2 mcg/L
== END 2020-01-31 23:59 | disposition home or self-care (01) ==
LOC: ANHLAB 15:16
PROVIDERS: PCP Internal Medicine; Referring Provider Internal Medicine
DX: M1A.09X0 Idiopathic chronic gout, multiple sites, without tophus (tophi) (principal); I48.0 Paroxysmal atrial fibrillation; E78.49 Other hyperlipidemia; Z94.0 Kidney transplant status; Z79.01 Long term (current) use of anticoagulants
CPT/HCPCS: 36415; 80053; 80061; 80069; 80197; 84550; 85025; 85610

== ENCOUNTER 2020-01-25 15:16 | Outpatient (RCR) | payer MEDICARE, SELFPAY ==
[2020-01-24 10:54] VITALS: BMI 30.2
[2020-01-24 11:03] VITALS: BMI 30.2
== END 2020-03-05 14:13 | disposition home or self-care (01) ==
LOC: ANHDMC 15:16
PROVIDERS: PCP Internal Medicine; Visit Provider Internal Medicine
DX: E11.9 Type 2 diabetes mellitus without complications (principal); Z71.89 Other specified counseling; Z71.3 Dietary counseling and surveillance
CPT/HCPCS: 97802; G0108

== ENCOUNTER 2020-02-22 14:05 | Outpatient (CLI) | payer MEDICARE, SELFPAY ==
[2020-02-22 14:52] LABS: Add Urine Microscopic? NO; Appearance Urine Clear (Clear); Bilirubin Urine Negative (Negative); Blood Urine Negative (Negative); Color Urine Yellow (Yellow); Glucose Urine UA Negative (Negative); Ketones Urine Negative (Negative); Leukocyte Esterase Ur Negative LEU/UL (NEGATIVE); Nitrate Urine Negative (Negative); Protein Urine Negative (Negative); Specific Grav Ur 1.013 (1.001-1.035); Urobilinogen Urine Negative mg/dL (<2.0)
[2020-02-22 15:02] LABS: Creatinine Urine 62.7 mg/dL; Total Protein Urine Random 13 mg/dL; Ur Ttl Prot Creatinine Ratio 0.21 mg/mg (0-0.20)
[2020-02-22 15:05] LABS: Anion Gap 9 mmol/L (8-16); Blood Urea Nitrogen 87 mg/dL (9-20); Calcium 9.2 mg/dL (8.4-10.2); Carbon Dioxide 26 mmol/L (22-30); Chloride 101 mmol/L (98-107); Estimated Glomerular Filt Rate 39; Glucose 136 mg/dL (75-110); Potassium 4.4 mmol/L (3.4-5.0); Sodium 136 mmol/L (137-145)
[2020-02-25 12:22] LABS: BK Virus DNA, Qual PCR Not Detected (Not Detected); BK Virus Specimen Source Plasma
[2020-02-25 12:45] LABS: CMV DNA Quant PCR IU/mL <200 IU/mL (<200); Cytomegalovirus DNA Quant PCR <2.30 log IU/mL (<2.30); Cytomegalovirus DNA Source Plasma
== END 2020-02-22 14:06 | disposition home or self-care (01) ==
PROVIDERS: PCP Internal Medicine; Referring Provider Internal Medicine Cardiovascular Disease
DX: I50.33 Acute on chronic diastolic (congestive) heart failure (principal); Z48.22 Encounter for aftercare following kidney transplant
CPT/HCPCS: 36415; 80048; 81003; 82570; 84156; 87497; 87798

== ENCOUNTER 2020-03-07 13:53 | Outpatient (CLI) | payer MEDICARE, SELFPAY ==
[2020-03-07 14:34] LABS: Hemoglobin A1C 6.5 % (<5.7)
== END 2020-03-07 13:54 | disposition home or self-care (01) ==
LOC: ANHLAB 13:55
PROVIDERS: PCP Internal Medicine; Visit Provider Internal Medicine
DX: E11.9 Type 2 diabetes mellitus without complications (principal)
CPT/HCPCS: 36415; 83036

== ENCOUNTER 2020-03-13 16:55 | Emergency (ER) | payer MEDICARE, SELFPAY ==
[2020-03-13] VITALS (10 sets, daily range): BP systolic 129–168; BP diastolic 67–78; PULSE 60–65; RESP 16–20; TEMP 36.1–36.5; O2SAT 97–100
--- NOTE | ~2020-03-13 | XR_ITS ---
EXAMINATION: XR shoulder LT min 2V INDICATION: Left shoulder pain TECHNIQUE: Four views of the left shoulder are submitted. COMPARISON: None FINDINGS: Normal alignment. No fracture. Glenohumeral and acromioclavicular joint spaces are normal. Calcified atherosclerosis is noted. There is a single lead pacemaker of the left chest wall. Changes of aortic valve surgery are noted. IMPRESSION: 1. No acute osseous abnormality. Reviewed, dictated and finalized at location A. INTEGRATION
--- NOTE | ~2020-03-13 | XR_ITS ---
EXAMINATION: XR lumbar spine 2-3V DATE: 03/13/2020 22:03 INDICATION: Low back pain TECHNIQUE: Anteroposterior and lateral views of the lumbar spine, and cone-down lateral view of the l umbosacral junction were obtained. COMPARISON: 12/09/2005 FINDINGS: There is stable grade 1 retrolisthesis of L3 on L4. There are 3 mm of stable anterolisthesi s of L5 on S1. The bones are osteopenic which limits the sensitivity for fracture however none is see n. The vertebral body heights are maintained. There is severe loss of intervertebral disc space heigh t from L3-4 through L5-S1. Small degenerative osteophytes project from the anterior endplates of mult iple vertebral bodies. There is severe facet osteoarthritis of the lower lumbar spine. Calcified athe rosclerosis is noted. There are changes of left total hip arthroplasty. Moderate right hip osteoarthr itis is noted. Surgical clips in the right upper quadrant are likely from prior cholecystectomy. The bowel gas pattern is normal. IMPRESSION: 1. Severe lumbar spondylosis without acute findings, sensitivity limited by osteopenia. Reviewed, dictated and finalized at location A. SPRAYER IMPRESSION: 1. Severe lumbar spondylosis without acute findings, sensitivity limited by ost eopenia.
--- NOTE | ~2020-03-13 | XR_ITS ---
EXAMINATION: XR knee LT 3V DATE: 03/13/2020 20:59 INDICATION: Left knee pain TECHNIQUE: Three views of the left knee were obtained. COMPARISON: 09/09/2005 FINDINGS: There are changes of total knee arthroplasty. A small size joint effusion is present. No fr acture is identified. There is anterior soft tissue swelling of the knee. Severe calcified atheroscle rosis is noted. IMPRESSION: 1. Anterior knee soft tissue swelling and small joint effusion without acute osseous abnormality. Reviewed, dictated and finalized at location A. POLISHER IMPRESSION: 1. Anterior knee soft tissue swelling and small joint effusion without acute os seous abnormality.
--- NOTE | 2020-03-13 19:45 | PC.NURSE ---
patient brought back to ED room 2 with c/o back pain. initial notes reviewed. patient has been in our waiting area due to no beds available in the ED. no change in condition from triage time. alert. oriented. in room.
--- NOTE | 2020-03-13 20:52 | PC.NURSE ---
patient brought back to ED room 2. patient has been in our waiting room due to no available beds in ED. alert. oriented. see initial notes. no change in patient's condition since triage completed.
--- NOTE | 2020-03-13 21:22 | PC.NURSE ---
patient back from radiology. in room. patient appears comfortable. concerned that no xrays of his back were done. waiting for provider to see patient.
--- NOTE | 2020-03-13 21:25 | PC.NURSE ---
provider just saw patient. waiting for further orders. does have dressing to skin tear on his left elbow. warm blanket given. bed adjusted.
--- NOTE | 2020-03-13 21:40 | ED.FALL ---
HPI - Fall General Chief Complaint: Fall Stated Complaint: fall Time Seen by Provider: 03/13/20 17:57 Source: patient Mode of arrival: ambulatory Limitations: no limitations History of Present Illness HPI Narrative: Patient is an 79-year-old male who presents complaining of lower back pain, left shoulder pain and left knee pain after fall into shower. Patient reports he was attempting to pull pants up after getting off the toilet when he lost balance and fell into the shower hurting left knee and left shoulder, he also is reporting lower back pain. Patient reports a history of sacral fracture and 12/12 that he reports is just healing . Patient is on warfarin. He denies LOC, he denies hitting head. He denies all other injuries. MD complaint: fall Related Data Home Medications Medication Instructions Recorded Confirmed azelastine 137 mcg (0.1 %) nasal 1 spray NASAL Q12H 01/17/19 03/05/20 spray aerosol ezetimibe 10 mg tablet 10 mg PO DAILY 01/17/19 03/05/20 prednisone 5 mg tablet 5 mg PO DAILY 01/17/19 03/05/20 warfarin 6 mg tablet 6 mg PO 5XW 01/17/19 03/05/20 acetaminophen 500 mg tablet 500 mg PO Q4H PRN 01/18/19 03/05/20 amoxicillin 500 mg capsule 500 mg PO Q12H 01/18/19 03/05/20 cholecalciferol (vitamin D3) 50 2,000 unit PO DAILY 01/18/19 03/05/20 mcg (2,000 unit) capsule loratadine 10 mg tablet 10 mg PO DAILY 01/18/19 03/05/20 sour hoover extract 1,000 mg mg PO 01/18/19 03/05/20 capsule icosapent ethyl 1 gram capsule 2 gm PO BID 04/06/19 03/05/20 allopurinol 100 mg tablet 300 mg PO DAILY tablet 10/25/19 03/05/20 carvedilol 6.25 mg tablet 6.25 mg PO Q12H 10/25/19 03/05/20 colchicine 0.6 mg tablet 0.6 mg PO .MWF tablet 10/25/19 03/05/20 furosemide 40 mg tablet 80 mg PO BID tablet 10/25/19 03/05/20 hydralazine 50 mg tablet 25 mg PO TID tablet 10/25/19 03/05/20 isosorbide dinitrate 30 mg tablet 30 mg PO TID 10/25/19 03/05/20 multivitamin 1 tablet PO DAILY 10/25/19 03/05/20 metolazone 2.5 mg tablet 2.5 mg PO DAILY 03/05/20 03/05/20 potassium chloride 20 mEq 40 meq PO DAILY tablet 03/05/20 03/05/20 tablet,extended release tacrolimus 1 mg capsule 1 mg PO Q12H 03/05/20 03/05/20 Allergies Allergy/AdvReac Type Severity Reaction Status Date / Time amlodipine Allergy Severe Other Verified 03/05/20 13:17 Heparin Analogues Allergy Unknown unknown Verified 03/05/20 13:17 morphine Allergy Unknown unknown Verified 03/05/20 13:17 Review of Systems Review of Systems: Narrative: CONSTITUTIONAL: Denies fever, chills, or sweats. EYES: Denies visual changes, redness, or discharge. ENT: Denies rhinorrhea, congestion, sore throat, or otalgia. CARDIOVASCULAR: Denies chest pain, palpitations, or edema. RESPIRATORY: Denies cough or dyspnea. GASTROINTESTINAL: Denies abdominal pain, nausea, vomiting, or diarrhea. GENITOURINARY: Denies dysuria or hematuria. SKIN: Skin tear to left arm MUSCULOSKELETAL: Reports back pain, left shoulder pain and left knee pain. NEUROLOGIC: Denies headache, numbness, dizziness, or weakness. PSYCHIATRIC: Denies anxiety or depression. 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
--- NOTE | 2020-03-13 22:20 | PC.NURSE ---
patient did go back to radiology for lumbar xray. back in room. wants to stand to use urinal. BP and O2 monitors removed. assisted to sit up then in room.
--- NOTE | 2020-03-13 22:46 | PC.NURSE ---
waiting for further orders from provider vs disposition.
--- NOTE | 2020-03-13 22:48 | PC.NURSE ---
provider in room now to review test results.
== END 2020-03-13 23:39 | disposition home or self-care (01) ==
PROVIDERS: Emergency Provider Nurse Practitioner; Family Provider Internal Medicine; PCP Internal Medicine
DX: S41.112A Laceration without foreign body of left upper arm, initial encounter (principal); M54.5 Low back pain; I48.91 Unspecified atrial fibrillation; E11.9 Type 2 diabetes mellitus without complications; G47.33 Obstructive sleep apnea (adult) (pediatric); M10.9 Gout, unspecified; I50.30 Unspecified diastolic (congestive) heart failure; Z79.01 Long term (current) use of anticoagulants; Z95.2 Presence of prosthetic heart valve; Z96.652 Presence of left artificial knee joint; Z94.0 Kidney transplant status; M47.816 Spondylosis without myelopathy or radiculopathy, lumbar region; M25.462 Effusion, left knee; W18.49XA Other slipping, tripping and stumbling without falling, initial encounter
CPT/HCPCS: 72100; 73030; 73562; 99284

== ENCOUNTER 2020-03-23 07:23 | Outpatient (RCR) | payer OTHER, MEDICARE, SELFPAY ==
[2020-03-23] VITALS (11 sets, daily range): BP systolic 130–161; BP diastolic 58–73; PULSE 59–63; RESP 15–18; TEMP 36.7–37.3; O2SAT 100
[2020-03-23 08:08] LABS: Hematocrit 22.1 % (42.0-52.0)
[2020-03-23 08:13] LABS: Hemoglobin 6.7 g/dL (14.0-18.0)
[2020-03-23] MEDS: SODIUM CHLORIDE 0.9% IV 250 ML 30 ML IV CONT (09:00)
[2020-03-23] MEDS: TUBING, BLOOD PLUM PUMP TUBING 1 EACH XX ×2 (09:30→13:20)
[2020-03-23] MEDS: FUROSEMIDE INJ 40 MG/4 ML VIAL IV PUSH (13:20)
== END 2020-06-21 23:59 | disposition home or self-care (01) ==
LOC: ANHCPCTRAN 07:23
PROVIDERS: Family Provider Internal Medicine; PCP Internal Medicine; Visit Provider Family Medicine
DX: D64.9 Anemia, unspecified (principal)
CPT/HCPCS: 36415; 36430; 85014; 85018; 86850; 86900; 86901; 86923; 96374; J1940; J7050; P9016

== ENCOUNTER 2020-04-25 15:38 | Outpatient (RCR) | payer MEDICARE, SELFPAY ==
[2020-02-28 12:52] LABS: Basophils Percent Auto 0.4 % (0.2-1.2); Eosinophils Absolute Auto 0.2 K/mm3 (0-0.3); Eosinophils Percent Auto 4.8 % (0-4.4); Hematocrit 37.1 % (42.0-52.0); Immature Granulocyte Absolute 0.01 K/mm3 (0.00-0.031); Immature Granulocyte Percent A 0.2 % (0-0.5); Lymphocytes Absolute Auto 1.59 K/mm3 (0.9-3.2); Lymphocytes Percent Auto 34.9 % (18.3-44.2); Mean Corpuscular HGB Conc 32.3 g/dl (32-36); Mean Corpuscular Hemoglobin 27.9 pg (26-34); Mean Corpuscular Volume 86.3 fl (80-100); Mean Platelet Volume 11.2 fl (7.4-10.4); Monocytes Absolute Auto 0.5 K/mm3 (0.1-0.6); Monocytes Percent Auto 10.3 % (2.6-8.5); Neutrophils Absolute Auto 2.2 K/mm3 (1.3-6.7); Neutrophils Percent Auto 49.4 % (45.5-73.1); Platelet Count Result 130 k/mm3 (150-375); Red Cell Distribution Width 16.4 % (11.5-14.5); White Blood Count 4.6 K/mm3 (4.5-10.0)
[2020-02-28 13:03] LABS: INR 3.3; Prothrombin Time 33.9 Seconds (11.1-14.7)
[2020-02-28 13:12] LABS: Alanine Aminotransferase 28 U/L (4-50); Albumin Level 4.2 g/dL (3.5-5.1); Alkaline Phosphatase 68 U/L (38-126); Anion Gap 9 mmol/L (8-16); Aspartate Amino Transferase 43 U/L (17-59); Bilirubin,Total 0.8 mg/dL (0.2-1.3); Blood Urea Nitrogen 88 mg/dL (9-20); Calcium 9.4 mg/dL (8.4-10.2); Carbon Dioxide 28 mmol/L (22-30); Chloride 99 mmol/L (98-107); Cholesterol 167 mg/dL (0-200); Estimated Glomerular Filt Rate 34; Glucose 110 mg/dL (75-110); HDL Direct 36 mg/dL; Phosphorus 4.1 mg/dL (2.5-4.5); Potassium 4.1 mmol/L (3.4-5.0); Sodium 136 mmol/L (137-145); Triglycerides 189 mg/dL (<150); Uric Acid 4.8 mg/dL (3.5-8.5)
[2020-02-28 13:23] LABS: LDL Cholesterol Direct 69 mg/dL
[2020-03-02 00:32] LABS: Tacrolimus Prograf 5.4 mcg/L
[2020-04-25 16:56] LABS: Basophils Percent Auto 0.4 % (0.2-1.2); Eosinophils Absolute Auto 0.2 K/mm3 (0-0.3); Eosinophils Percent Auto 4.4 % (0-4.4); Hematocrit 34.1 % (42.0-52.0); Hemoglobin 10.5 g/dL (14.0-18.0); Immature Granulocyte Absolute 0.02 K/mm3 (0.00-0.031); Immature Granulocyte Percent A 0.4 % (0-0.5); Lymphocytes Absolute Auto 1.46 K/mm3 (0.9-3.2); Lymphocytes Percent Auto 26.7 % (18.3-44.2); Mean Corpuscular HGB Conc 30.8 g/dl (32-36); Mean Corpuscular Hemoglobin 27.6 pg (26-34); Mean Corpuscular Volume 89.5 fl (80-100); Mean Platelet Volume 10.7 fl (7.4-10.4); Monocytes Absolute Auto 0.5 K/mm3 (0.1-0.6); Neutrophils Absolute Auto 3.2 K/mm3 (1.3-6.7); Neutrophils Percent Auto 59.1 % (45.5-73.1); Platelet Count Result 135 k/mm3 (150-375); Red Blood Count 3.81 M/mm3 (4.6-6.20); Red Cell Distribution Width 17.7 % (11.5-14.5); White Blood Count 5.5 K/mm3 (4.5-10.0)
[2020-04-25 17:05] LABS: INR 2.9; Prothrombin Time 31.1 Seconds (11.1-14.7)
[2020-04-25 17:31] LABS: Albumin Level 3.9 g/dL (3.5-5.1); Anion Gap 5 mmol/L (8-16); Blood Urea Nitrogen 60 mg/dL (9-20); Calcium 9.4 mg/dL (8.4-10.2); Carbon Dioxide 29 mmol/L (22-30); Chloride 102 mmol/L (98-107); Estimated Glomerular Filt Rate 45; Glucose 128 mg/dL (75-110); Phosphorus 3.6 mg/dL (2.5-4.5); Sodium 136 mmol/L (137-145); Uric Acid 4.1 mg/dL (3.5-8.5)
[2020-04-27 09:53] LABS: Tacrolimus Prograf 7.6 mcg/L
== END 2020-05-28 23:59 | disposition home or self-care (01) ==
LOC: ANHLAB 15:38
PROVIDERS: PCP Internal Medicine; Referring Provider Internal Medicine Rheumatology
DX: Z51.81 Encounter for therapeutic drug level monitoring (principal); E78.5 Hyperlipidemia, unspecified; M1A.09X0 Idiopathic chronic gout, multiple sites, without tophus (tophi); Z94.0 Kidney transplant status; Z79.899 Other long term (current) drug therapy; Z79.01 Long term (current) use of anticoagulants
CPT/HCPCS: 36415; 80053; 80061; 80069; 80197; 84100; 84550; 85025; 85610

== ENCOUNTER 2020-06-30 12:50 | Outpatient (RCR) | payer MEDICARE, SELFPAY ==
[2020-05-30 12:27] LABS: Basophils Percent Auto 0.4 % (0.2-1.2); Eosinophils Absolute Auto 0.3 K/mm3 (0-0.3); Eosinophils Percent Auto 5.9 % (0-4.4); Hematocrit 36.4 % (42.0-52.0); Hemoglobin 11.2 g/dL (14.0-18.0); Immature Granulocyte Absolute 0.02 K/mm3 (0.00-0.031); Immature Granulocyte Percent A 0.4 % (0-0.5); Lymphocytes Absolute Auto 1.58 K/mm3 (0.9-3.2); Mean Corpuscular HGB Conc 30.8 g/dl (32-36); Mean Corpuscular Hemoglobin 27.6 pg (26-34); Mean Corpuscular Volume 89.7 fl (80-100); Mean Platelet Volume 10.5 fl (7.4-10.4); Monocytes Absolute Auto 0.4 K/mm3 (0.1-0.6); Monocytes Percent Auto 8.4 % (2.6-8.5); Neutrophils Absolute Auto 2.8 K/mm3 (1.3-6.7); Neutrophils Percent Auto 53.9 % (45.5-73.1); Platelet Count Result 114 k/mm3 (150-375); Red Blood Count 4.06 M/mm3 (4.6-6.20); Red Cell Distribution Width 16.5 % (11.5-14.5); White Blood Count 5.1 K/mm3 (4.5-10.0)
[2020-05-30 12:33] LABS: Alanine Aminotransferase 17 U/L (4-50); Albumin Level 3.9 g/dL (3.5-5.1); Alkaline Phosphatase 46 U/L (38-126); Anion Gap 7 mmol/L (8-16); Aspartate Amino Transferase 29 U/L (17-59); Bilirubin,Total 0.5 mg/dL (0.2-1.3); Blood Urea Nitrogen 66 mg/dL (9-20); Calcium 9.1 mg/dL (8.4-10.2); Carbon Dioxide 25 mmol/L (22-30); Chloride 105 mmol/L (98-107); Cholesterol 151 mg/dL (0-200); Estimated Glomerular Filt Rate 45; Glucose 102 mg/dL (75-110); HDL Direct 37 mg/dL; Phosphorus 3.7 mg/dL (2.5-4.5); Potassium 4.6 mmol/L (3.4-5.0); Sodium 137 mmol/L (137-145); Triglycerides 154 mg/dL (<150); Uric Acid 4.9 mg/dL (3.5-8.5)
[2020-05-30 12:38] LABS: INR 2.3; Prothrombin Time 26.1 Seconds (11.1-14.7)
[2020-05-30 12:45] LABS: LDL Cholesterol Direct 66 mg/dL
[2020-05-30 12:49] LABS: Hemoglobin A1C 5.9 % (<5.7)
[2020-05-30 13:20] LABS: Free T4 Free Thyroxine 0.87 ng/mL (0.78-2.19)
[2020-06-01 23:23] LABS: Tacrolimus Prograf 5.8 mcg/L
[2020-06-30 13:42] LABS: Basophils Percent Auto 0.2 % (0.2-1.2); Eosinophils Absolute Auto 0.2 K/mm3 (0-0.3); Hematocrit 35.6 % (42.0-52.0); Hemoglobin 10.9 g/dL (14.0-18.0); Immature Granulocyte Absolute 0.01 K/mm3 (0.00-0.031); Immature Granulocyte Percent A 0.2 % (0-0.5); Lymphocytes Absolute Auto 1.39 K/mm3 (0.9-3.2); Lymphocytes Percent Auto 27.6 % (18.3-44.2); Mean Corpuscular HGB Conc 30.6 g/dl (32-36); Mean Corpuscular Hemoglobin 27.2 pg (26-34); Mean Corpuscular Volume 88.8 fl (80-100); Mean Platelet Volume 11.7 fl (7.4-10.4); Monocytes Absolute Auto 0.6 K/mm3 (0.1-0.6); Monocytes Percent Auto 10.9 % (2.6-8.5); Neutrophils Absolute Auto 2.9 K/mm3 (1.3-6.7); Neutrophils Percent Auto 57.1 % (45.5-73.1); Platelet Count Result 122 k/mm3 (150-375); Red Blood Count 4.01 M/mm3 (4.6-6.20); Red Cell Distribution Width 16.1 % (11.5-14.5)
[2020-06-30 13:54] LABS: Albumin Level 4.2 g/dL (3.5-5.1); Anion Gap 7 mmol/L (8-16); Blood Urea Nitrogen 76 mg/dL (9-20); Calcium 9.8 mg/dL (8.4-10.2); Carbon Dioxide 28 mmol/L (22-30); Chloride 103 mmol/L (98-107); Estimated Glomerular Filt Rate 36; Glucose 113 mg/dL (75-110); INR 1.9; Phosphorus 3.4 mg/dL (2.5-4.5); Potassium 4.4 mmol/L (3.4-5.0); Prothrombin Time 22.5 Seconds (11.1-14.7); Sodium 138 mmol/L (137-145); Uric Acid 4.4 mg/dL (3.5-8.5)
[2020-07-03 23:18] LABS: Tacrolimus Prograf 4.9 mcg/L
== END 2020-08-28 23:59 | disposition home or self-care (01) ==
LOC: ANHLAB 12:50
PROVIDERS: PCP Internal Medicine
DX: Z51.81 Encounter for therapeutic drug level monitoring (principal); E78.5 Hyperlipidemia, unspecified; M1A.09X0 Idiopathic chronic gout, multiple sites, without tophus (tophi); Z79.899 Other long term (current) drug therapy; Z94.0 Kidney transplant status; Z79.01 Long term (current) use of anticoagulants
CPT/HCPCS: 36415; 80053; 80061; 80069; 80197; 83036; 84100; 84439; 84443; 84550; 85025; 85610

== ENCOUNTER 2020-07-13 12:05 | Outpatient (CLI) | payer MEDICARE, SELFPAY ==
[2020-07-13 12:45] LABS: Anion Gap 7 mmol/L (8-16); Blood Urea Nitrogen 64 mg/dL (9-20); Calcium 9.7 mg/dL (8.4-10.2); Carbon Dioxide 27 mmol/L (22-30); Chloride 101 mmol/L (98-107); Cholesterol 128 mg/dL (0-200); Estimated Glomerular Filt Rate 39; Glucose 113 mg/dL (75-110); HDL Direct 37 mg/dL; Hemoglobin A1C 6.5 % (<5.7); Potassium 4.1 mmol/L (3.4-5.0); Sodium 135 mmol/L (137-145); Triglycerides 139 mg/dL (<150)
[2020-07-13 12:58] LABS: LDL Cholesterol Direct 52 mg/dL
[2020-07-13 13:16] LABS: Free T4 Free Thyroxine 1.02 ng/mL (0.78-2.19)
== END 2020-07-13 12:06 | disposition home or self-care (01) ==
PROVIDERS: PCP Internal Medicine; Visit Provider Internal Medicine
DX: E78.2 Mixed hyperlipidemia (principal); Z79.899 Other long term (current) drug therapy; E11.9 Type 2 diabetes mellitus without complications
CPT/HCPCS: 36415; 80048; 80061; 83036; 84439; 84443

== ENCOUNTER 2020-08-31 10:33 | Outpatient (RCR) | payer MEDICARE, SELFPAY ==
[2020-08-31 11:30] LABS: Basophils Percent Auto 0.3 % (0.2-1.2); Eosinophils Absolute Auto 0.1 K/mm3 (0-0.3); Eosinophils Percent Auto 3.1 % (0-4.4); Hematocrit 36.2 % (42.0-52.0); Hemoglobin 10.9 g/dL (14.0-18.0); Immature Granulocyte Absolute 0.01 K/mm3 (0.00-0.031); Immature Granulocyte Percent A 0.3 % (0-0.5); Lymphocytes Absolute Auto 1.49 K/mm3 (0.9-3.2); Lymphocytes Percent Auto 38.2 % (18.3-44.2); Mean Corpuscular HGB Conc 30.1 g/dl (32-36); Mean Corpuscular Volume 89.8 fl (80-100); Mean Platelet Volume 10.8 fl (7.4-10.4); Monocytes Absolute Auto 0.4 K/mm3 (0.1-0.6); Monocytes Percent Auto 9.5 % (2.6-8.5); Neutrophils Absolute Auto 1.9 K/mm3 (1.3-6.7); Neutrophils Percent Auto 48.6 % (45.5-73.1); Platelet Count Result 121 k/mm3 (150-375); Red Blood Count 4.03 M/mm3 (4.6-6.20); Red Cell Distribution Width 17.1 % (11.5-14.5); White Blood Count 3.9 K/mm3 (4.5-10.0)
[2020-08-31 11:35] LABS: Prothrombin Time 66.6 Seconds (11.1-14.7)
[2020-08-31 11:50] LABS: INR 8.4
[2020-08-31 14:03] LABS: Alanine Aminotransferase 34 U/L (4-50); Albumin Level 4.5 g/dL (3.5-5.1); Alkaline Phosphatase 44 U/L (38-126); Anion Gap 12 mmol/L (8-16); Aspartate Amino Transferase 47 U/L (17-59); Bilirubin,Total 0.8 mg/dL (0.2-1.3); Blood Urea Nitrogen 87 mg/dL (9-20); Calcium 9.9 mg/dL (8.4-10.2); Carbon Dioxide 22 mmol/L (22-30); Chloride 105 mmol/L (98-107); Cholesterol 177 mg/dL (0-200); Estimated Glomerular Filt Rate 42; Glucose 97 mg/dL (75-110); HDL Direct 37 mg/dL; Potassium 4.3 mmol/L (3.4-5.0); Sodium 139 mmol/L (137-145); Triglycerides 136 mg/dL (<150); Uric Acid 4.4 mg/dL (3.5-8.5)
[2020-08-31 14:13] LABS: LDL Cholesterol Direct 69 mg/dL
[2020-09-03 05:18] LABS: Tacrolimus Prograf 6.8 mcg/L
== END 2020-08-31 10:34 | disposition home or self-care (01) ==
LOC: ANHLAB 10:33
PROVIDERS: PCP Internal Medicine
DX: Z51.81 Encounter for therapeutic drug level monitoring (principal); E78.5 Hyperlipidemia, unspecified; M1A.09X0 Idiopathic chronic gout, multiple sites, without tophus (tophi); Z94.0 Kidney transplant status; Z79.01 Long term (current) use of anticoagulants; Z79.899 Other long term (current) drug therapy
CPT/HCPCS: 36415; 80053; 80061; 80069; 80197; 84550; 85025; 85610

== ENCOUNTER 2020-10-02 13:12 | Outpatient (CLI) | payer MEDICARE, SELFPAY ==
[2020-10-02 14:21] LABS: Alanine Aminotransferase 29 U/L (4-50); Albumin Level 4.1 g/dL (3.5-5.1); Alkaline Phosphatase 39 U/L (38-126); Anion Gap 10 mmol/L (8-16); Aspartate Amino Transferase 37 U/L (17-59); Bilirubin,Total 0.7 mg/dL (0.2-1.3); Blood Urea Nitrogen 84 mg/dL (9-20); Calcium 9.7 mg/dL (8.4-10.2); Carbon Dioxide 23 mmol/L (22-30); Chloride 104 mmol/L (98-107); Cholesterol 147 mg/dL (0-200); Estimated Glomerular Filt Rate 36; Glucose 123 mg/dL (65-110); HDL Direct 37 mg/dL; Potassium 4.5 mmol/L (3.4-5.0); Sodium 137 mmol/L (137-145); Triglycerides 142 mg/dL (<150)
[2020-10-02 14:32] LABS: LDL Cholesterol Direct 58 mg/dL
[2020-10-02 17:40] LABS: Hemoglobin A1C 6.2 % (<5.7)
== END 2020-10-02 13:13 | disposition home or self-care (01) ==
PROVIDERS: PCP Internal Medicine; Visit Provider Internal Medicine
DX: E11.9 Type 2 diabetes mellitus without complications (principal); Z79.899 Other long term (current) drug therapy; E78.2 Mixed hyperlipidemia; R79.89 Other specified abnormal findings of blood chemistry
CPT/HCPCS: 36415; 80053; 80061; 83036

== ENCOUNTER 2020-10-23 14:24 | Emergency (ER) | payer MEDICARE, SELFPAY ==
[2020-10-23 15:10] VITALS: BP 106/61; PULSE 68; RESP 14; TEMP 37.2; O2SAT 98
[2020-10-23 17:45] VITALS: BP 161/90; PULSE 66; RESP 18; O2SAT 97
--- NOTE | 2020-10-23 18:17 | ED.GENADULT ---
HPI - General Adult General Chief complaint: Wound/Laceration Stated complaint: bleeding wound on coumadin Time Seen by Provider: 10/23/20 17:53 History of Present Illness HPI narrative: Patient is here with his for treatment of persistent bleeding from a skin tear that happened yesterday. His was able to dress his left arm and get the bleeding to stop, there is no bleeding through her dressings and there greater than 12 hours old. The right arm continues to bleed a little. They have pulled the skin down uncurled as best they could and try to address it but it continued to bleed through the dressing. Patient is on Coumadin and had his INR done today it was 2.6. Onset (ago): day(s) Relieving factors: none Exacerbating factors: none Associated symptoms: denies other symptoms Related Data Home Medications Medication Instructions Recorded Confirmed azelastine 137 mcg (0.1 %) nasal 1 spray NASAL Q12H 01/17/19 08/22/20 spray aerosol ezetimibe 10 mg tablet 10 mg PO DAILY 01/17/19 08/22/20 prednisone 5 mg tablet 5 mg PO DAILY 01/17/19 08/22/20 acetaminophen 500 mg tablet 500 mg PO Q4H PRN 01/18/19 08/22/20 cholecalciferol (vitamin D3) 50 2,000 unit PO DAILY 01/18/19 08/22/20 mcg (2,000 unit) capsule sour hoover extract 1,000 mg mg PO 01/18/19 08/22/20 capsule allopurinol 100 mg tablet 300 mg PO DAILY tablet 10/25/19 08/22/20 carvedilol 6.25 mg tablet 6.25 mg PO Q12H 10/25/19 08/22/20 colchicine 0.6 mg tablet 0.6 mg PO .MWF tablet 10/25/19 08/22/20 multivitamin 1 tablet PO DAILY 10/25/19 08/22/20 potassium chloride 20 mEq 40 meq PO DAILY tablet 03/05/20 08/22/20 tablet,extended release cetirizine 10 mg tablet 10 mg PO DAILY 05/03/20 08/22/20 tacrolimus 1 mg capsule,extended 1 mg PO QAM 05/03/20 08/22/20 release 24 hr lidocaine 4 % topical patch 2 patch TOPICAL DAILY PRN ea 07/18/20 08/22/20 amoxicillin 500 mg capsule 500 mg PO Q12H 08/09/20 08/22/20 furosemide 40 mg tablet See Rx Instructions PO BID tablet 08/09/20 08/22/20 icosapent ethyl 1 gram capsule 4 g PO DAILY cap 08/09/20 08/22/20 warfarin 1 mg tablet 1 mg PO .Thu/Thur tablet 08/09/20 08/22/20 warfarin 6 mg tablet 6 mg PO .Thursday tablet 08/16/20 08/22/20 Allergies Allergy/AdvReac Type Severity Reaction Status Date / Time amlodipine Allergy Severe Other Verified 08/16/20 14:54 Heparin Analogues Allergy Unknown unknown Verified 08/16/20 14:54 morphine Allergy Unknown unknown Verified 08/16/20 14:54 Review of Systems Review of Systems: All systems reviewed & are unremarkable except as noted in HPI and below PMFSH Past Medical History Medical History A-fib Black tarry stools Blindness of left eye BMI 27.0-27.9,adult BMI 28.0-28.9,adult BMI 29.0-29.9,adult BMI 30.0-30.9,adult BMI 31.0-31.9,adult Cellulitis of left lower extremity Dependent edema Depression Diastolic congestive heart failure Diverticulitis DM type 2 (diabetes mellitus, type 2) Elevated hemoglobin A1c Elevated serum creatinine Encounter for routine adult health examination without abnormal findings Follow up Gout Hearing loss Hematoma Hx of sarcoidosis Hypotension Infective endocarditis 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
[2020-10-23 19:41] VITALS: BP 128/75; PULSE 111; RESP 16; O2SAT 98
== END 2020-10-23 19:42 | disposition home or self-care (01) ==
PROVIDERS: Emergency Provider Emergency Medicine; PCP Internal Medicine
DX: S51.811A Laceration without foreign body of right forearm, initial encounter (principal); Z79.01 Long term (current) use of anticoagulants; I48.91 Unspecified atrial fibrillation; I50.30 Unspecified diastolic (congestive) heart failure; E11.9 Type 2 diabetes mellitus without complications; M10.9 Gout, unspecified; G47.33 Obstructive sleep apnea (adult) (pediatric); W18.09XA Striking against other object with subsequent fall, initial encounter
CPT/HCPCS: 99282

== ENCOUNTER 2020-12-31 10:46 | Outpatient (RCR) | payer MEDICARE, SELFPAY ==
[2020-10-13 11:47] LABS: Basophils Percent Auto 0.5 % (0.2-1.2); Eosinophils Absolute Auto 0.2 K/mm3 (0-0.3); Eosinophils Percent Auto 4.2 % (0-4.4); Hematocrit 36.2 % (42.0-52.0); Hemoglobin 11.1 g/dL (14.0-18.0); Lymphocytes Absolute Auto 1.81 K/mm3 (0.9-3.2); Lymphocytes Percent Auto 42.2 % (18.3-44.2); Mean Corpuscular HGB Conc 30.7 g/dl (32-36); Mean Corpuscular Hemoglobin 27.3 pg (26-34); Mean Corpuscular Volume 89.2 fl (80-100); Mean Platelet Volume 12.5 fl (7.4-10.4); Monocytes Absolute Auto 0.5 K/mm3 (0.1-0.6); Monocytes Percent Auto 11.9 % (2.6-8.5); Neutrophils Absolute Auto 1.8 K/mm3 (1.3-6.7); Neutrophils Percent Auto 41.2 % (45.5-73.1); Platelet Count Result 122 k/mm3 (150-375); Red Blood Count 4.06 M/mm3 (4.6-6.20); Red Cell Distribution Width 16.1 % (11.5-14.5); White Blood Count 4.3 K/mm3 (4.5-10.0)
[2020-11-24 11:24] LABS: Basophils Percent Auto 0.5 % (0.2-1.2); Eosinophils Absolute Auto 0.2 K/mm3 (0-0.3); Eosinophils Percent Auto 4.5 % (0-4.4); Hematocrit 36.4 % (42.0-52.0); Hemoglobin 11.4 g/dL (14.0-18.0); Lymphocytes Absolute Auto 1.81 K/mm3 (0.9-3.2); Lymphocytes Percent Auto 42.7 % (18.3-44.2); Mean Corpuscular HGB Conc 31.3 g/dl (32-36); Mean Corpuscular Hemoglobin 28.3 pg (26-34); Mean Corpuscular Volume 90.3 fl (80-100); Mean Platelet Volume 11.1 fl (7.4-10.4); Monocytes Absolute Auto 0.5 K/mm3 (0.1-0.6); Monocytes Percent Auto 11.1 % (2.6-8.5); Neutrophils Absolute Auto 1.8 K/mm3 (1.3-6.7); Neutrophils Percent Auto 41.2 % (45.5-73.1); Platelet Count Result 115 k/mm3 (150-375); Red Blood Count 4.03 M/mm3 (4.6-6.20); Red Cell Distribution Width 15.8 % (11.5-14.5); White Blood Count 4.2 K/mm3 (4.5-10.0)
[2020-11-24 11:38] LABS: Alanine Aminotransferase 29 U/L (4-50); Albumin Level 4.6 g/dL (3.5-5.1); Alkaline Phosphatase 50 U/L (38-126); Anion Gap 9 mmol/L (8-16); Aspartate Amino Transferase 34 U/L (17-59); Bilirubin,Total 0.6 mg/dL (0.2-1.3); Blood Urea Nitrogen 74 mg/dL (9-20); Calcium 9.8 mg/dL (8.4-10.2); Carbon Dioxide 28 mmol/L (22-30); Chloride 103 mmol/L (98-107); Cholesterol 155 mg/dL (0-200); Estimated Glomerular Filt Rate 36; Glucose 102 mg/dL (65-110); HDL Direct 41 mg/dL; Phosphorus 4.3 mg/dL (2.5-4.5); Potassium 4.1 mmol/L (3.4-5.0); Sodium 140 mmol/L (137-145); Triglycerides 94 mg/dL (<150); Uric Acid 4.6 mg/dL (3.5-8.5)
[2020-11-24 11:43] LABS: Prothrombin Time 22.5 Seconds (11.1-14.7)
[2020-11-24 11:49] LABS: LDL Cholesterol Direct 77 mg/dL
[2020-11-27 17:08] LABS: Tacrolimus Prograf 5.1 mcg/L
[2020-12-31 12:56] LABS: Basophils Percent Auto 0.4 % (0.2-1.2); Eosinophils Absolute Auto 0.2 K/mm3 (0-0.3); Eosinophils Percent Auto 4.6 % (0-4.4); Hemoglobin 10.8 g/dL (14.0-18.0); Immature Granulocyte Absolute 0.01 K/mm3 (0.00-0.031); Immature Granulocyte Percent A 0.2 % (0-0.5); Lymphocytes Absolute Auto 1.49 K/mm3 (0.9-3.2); Mean Corpuscular HGB Conc 31.8 g/dl (32-36); Mean Corpuscular Hemoglobin 28.5 pg (26-34); Mean Corpuscular Volume 89.7 fl (80-100); Monocytes Absolute Auto 0.5 K/mm3 (0.1-0.6); Monocytes Percent Auto 9.1 % (2.6-8.5); Neutrophils Absolute Auto 2.8 K/mm3 (1.3-6.7); Neutrophils Percent Auto 55.7 % (45.5-73.1); Platelet Count Result 105 k/mm3 (150-375); Red Blood Count 3.79 M/mm3 (4.6-6.20); Red Cell Distribution Width 15.9 % (11.5-14.5)
[2020-12-31 12:57] LABS: Albumin Level 4.2 g/dL (3.5-5.1); Anion Gap 13 mmol/L (8-16); Blood Urea Nitrogen 87 mg/dL (9-20); Calcium 9.7 mg/dL (8.4-10.2); Carbon Dioxide 25 mmol/L (22-30); Chloride 103 mmol/L (98-107); Estimated Glomerular Filt Rate 39; Glucose 108 mg/dL (65-110); Phosphorus 4.3 mg/dL (2.5-4.5); Potassium 4.2 mmol/L (3.4-5.0); Sodium 141 mmol/L (137-145); Uric Acid 4.4 mg/dL (3.5-8.5)
[2020-12-31 13:00] LABS: INR 1.7; Prothrombin Time 19.2 Seconds (11.1-14.7)
[2021-01-02 12:12] LABS: Tacrolimus Prograf 6.6 mcg/L
== END 2021-01-11 23:59 | disposition home or self-care (01) ==
LOC: ANHWCLAB 10:46
PROVIDERS: PCP Internal Medicine; Referring Provider Internal Medicine Rheumatology; Visit Provider Internal Medicine
DX: Z51.81 Encounter for therapeutic drug level monitoring (principal); E78.5 Hyperlipidemia, unspecified; M1A.09X0 Idiopathic chronic gout, multiple sites, without tophus (tophi); Z94.0 Kidney transplant status; Z79.01 Long term (current) use of anticoagulants; Z79.899 Other long term (current) drug therapy
CPT/HCPCS: 36415; 80053; 80061; 80069; 80197; 84100; 84550; 85025; 85610

== ENCOUNTER 2021-04-22 13:15 | Outpatient (CLI) | payer MEDICARE, SELFPAY ==
[2021-04-22 16:41] LABS: Cholesterol 166 mg/dL (0-200); HDL Direct 35 mg/dL; Triglycerides 195 mg/dL (<150)
[2021-04-22 16:52] LABS: LDL Cholesterol Direct 71 mg/dL
[2021-04-23 06:02] LABS: Free T4 Free Thyroxine 0.86 ng/mL (0.78-2.19)
== END 2021-04-22 13:16 | disposition home or self-care (01) ==
PROVIDERS: PCP Internal Medicine; Visit Provider Internal Medicine
DX: E78.2 Mixed hyperlipidemia (principal); Z79.899 Other long term (current) drug therapy; E11.9 Type 2 diabetes mellitus without complications
CPT/HCPCS: 36415; 80061; 80069; 80197; 84439; 84443; 84550; 85610

== ENCOUNTER 2021-06-05 10:32 | Outpatient (RCR) | payer MEDICARE, SELFPAY ==
[2021-03-12 13:25] LABS: Basophils Percent Auto 0.5 % (0.2-1.2); Eosinophils Absolute Auto 0.2 K/mm3 (0-0.3); Eosinophils Percent Auto 4.7 % (0-4.4); Hematocrit 37.5 % (42.0-52.0); Hemoglobin 11.7 g/dL (14.0-18.0); Immature Granulocyte Absolute 0.01 K/mm3 (0.00-0.031); Immature Granulocyte Percent A 0.2 % (0-0.5); Lymphocytes Percent Auto 40.6 % (18.3-44.2); Mean Corpuscular HGB Conc 31.2 g/dl (32-36); Mean Corpuscular Hemoglobin 28.3 pg (26-34); Mean Corpuscular Volume 90.8 fl (80-100); Mean Platelet Volume 11.5 fl (7.4-10.4); Monocytes Absolute Auto 0.5 K/mm3 (0.1-0.6); Monocytes Percent Auto 10.2 % (2.6-8.5); Neutrophils Absolute Auto 1.9 K/mm3 (1.3-6.7); Neutrophils Percent Auto 43.8 % (45.5-73.1); Platelet Count Result 113 k/mm3 (150-375); Red Blood Count 4.13 M/mm3 (4.6-6.20); Red Cell Distribution Width 16.5 % (11.5-14.5); White Blood Count 4.4 K/mm3 (4.5-10.0)
[2021-03-12 13:33] LABS: Alanine Aminotransferase 33 U/L (4-50); Albumin Level 4.4 g/dL (3.5-5.1); Alkaline Phosphatase 47 U/L (38-126); Anion Gap 10 mmol/L (8-16); Aspartate Amino Transferase 66 U/L (17-59); Bilirubin,Total 0.6 mg/dL (0.2-1.3); Blood Urea Nitrogen 81 mg/dL (9-20); Calcium 9.7 mg/dL (8.4-10.2); Carbon Dioxide 27 mmol/L (22-30); Chloride 100 mmol/L (98-107); Cholesterol 161 mg/dL (0-200); Estimated Glomerular Filt Rate 34; Glucose 113 mg/dL (65-110); HDL Direct 36 mg/dL; Phosphorus 4.5 mg/dL (2.5-4.5); Potassium 4.2 mmol/L (3.4-5.0); Sodium 137 mmol/L (137-145); Triglycerides 103 mg/dL (<150); Uric Acid 4.3 mg/dL (3.5-8.5)
[2021-03-12 13:37] LABS: INR 1.4; Prothrombin Time 17.3 Seconds (11.1-14.7)
[2021-03-12 13:43] LABS: LDL Cholesterol Direct 75 mg/dL
[2021-03-14 21:14] LABS: Tacrolimus Prograf 6.3 mcg/L
[2021-04-22 16:33] LABS: INR 1.9; Prothrombin Time 20.9 Seconds (11.1-14.7)
[2021-04-22 16:36] LABS: Albumin Level 4.1 g/dL (3.5-5.1); Anion Gap 11 mmol/L (8-16); Blood Urea Nitrogen 83 mg/dL (9-20); Calcium 9.1 mg/dL (8.4-10.2); Carbon Dioxide 25 mmol/L (22-30); Chloride 99 mmol/L (98-107); Estimated Glomerular Filt Rate 39; Glucose 127 mg/dL (65-110); Phosphorus 4.2 mg/dL (2.5-4.5); Potassium 4.2 mmol/L (3.4-5.0); Sodium 135 mmol/L (137-145); Uric Acid 4.2 mg/dL (3.5-8.5)
[2021-04-23 16:15] LABS: Basophils Percent Auto 0.4 % (0.2-1.2); Eosinophils Absolute Auto 0.2 K/mm3 (0-0.3); Eosinophils Percent Auto 4.4 % (0-4.4); Hematocrit 37.2 % (42.0-52.0); Hemoglobin 11.9 g/dL (14.0-18.0); Immature Granulocyte Absolute 0.01 K/mm3 (0.00-0.031); Immature Granulocyte Percent A 0.2 % (0-0.5); Lymphocytes Absolute Auto 1.92 K/mm3 (0.9-3.2); Lymphocytes Percent Auto 35.4 % (18.3-44.2); Mean Corpuscular Hemoglobin 28.6 pg (26-34); Mean Corpuscular Volume 89.4 fl (80-100); Mean Platelet Volume 11.8 fl (7.4-10.4); Monocytes Absolute Auto 0.5 K/mm3 (0.1-0.6); Neutrophils Absolute Auto 2.8 K/mm3 (1.3-6.7); Neutrophils Percent Auto 50.6 % (45.5-73.1); Platelet Count Result 122 k/mm3 (150-375); Red Blood Count 4.16 M/mm3 (4.6-6.20); Red Cell Distribution Width 15.9 % (11.5-14.5); White Blood Count 5.4 K/mm3 (4.5-10.0)
[2021-04-23 22:42] LABS: Hemoglobin A1C 6.3 % (<5.7)
[2021-04-24 21:35] LABS: Tacrolimus Prograf 7.8 mcg/L
[2021-06-05 15:01] LABS: Basophils Percent Auto 0.8 % (0.2-1.2); Eosinophils Absolute Auto 0.2 K/mm3 (0-0.3); Eosinophils Percent Auto 5.9 % (0-4.4); Hematocrit 33.4 % (42.0-52.0); Hemoglobin 10.3 g/dL (14.0-18.0); Lymphocytes Absolute Auto 1.35 K/mm3 (0.9-3.2); Lymphocytes Percent Auto 36.2 % (18.3-44.2); Mean Corpuscular HGB Conc 30.8 g/dl (32-36); Mean Corpuscular Hemoglobin 27.9 pg (26-34); Mean Corpuscular Volume 90.5 fl (80-100); Monocytes Absolute Auto 0.4 K/mm3 (0.1-0.6); Monocytes Percent Auto 11.3 % (2.6-8.5); Neutrophils Absolute Auto 1.7 K/mm3 (1.3-6.7); Neutrophils Percent Auto 45.8 % (45.5-73.1); Platelet Count Result 124 k/mm3 (150-375); Red Blood Count 3.69 M/mm3 (4.6-6.20); Red Cell Distribution Width 15.8 % (11.5-14.5); White Blood Count 3.7 K/mm3 (4.5-10.0)
[2021-06-05 15:15] LABS: INR 2.5; Prothrombin Time 26.1 Seconds (11.1-14.7)
[2021-06-05 15:23] LABS: Alanine Aminotransferase 87 U/L (4-50); Albumin Level 3.6 g/dL (3.5-5.1); Alkaline Phosphatase 50 U/L (38-126); Anion Gap 10 mmol/L (8-16); Aspartate Amino Transferase 58 U/L (17-59); Bilirubin,Total 0.6 mg/dL (0.2-1.3); Blood Urea Nitrogen 79 mg/dL (9-20); Carbon Dioxide 22 mmol/L (22-30); Chloride 105 mmol/L (98-107); Cholesterol 142 mg/dL (0-200); Estimated Glomerular Filt Rate 45; Glucose 106 mg/dL (65-110); HDL Direct 33 mg/dL; Phosphorus 3.9 mg/dL (2.5-4.5); Potassium 3.8 mmol/L (3.4-5.0); Sodium 137 mmol/L (137-145); Triglycerides 106 mg/dL (<150)
[2021-06-05 15:34] LABS: LDL Cholesterol Direct 61 mg/dL
[2021-06-08 17:16] LABS: Tacrolimus Prograf 4.1 mcg/L
== END 2021-06-10 23:59 | disposition home or self-care (01) ==
LOC: ANHWCLAB 10:32
PROVIDERS: PCP Internal Medicine; Referring Provider Internal Medicine; Visit Provider Internal Medicine
DX: Z51.81 Encounter for therapeutic drug level monitoring (principal); M1A.09X0 Idiopathic chronic gout, multiple sites, without tophus (tophi); E78.2 Mixed hyperlipidemia; Z94.0 Kidney transplant status; Z79.899 Other long term (current) drug therapy
CPT/HCPCS: 36415; 80061; 80069; 80076; 80197; 82247; 82248; 83036; 84075; 84155; 84450; 84460; 84550; 85025; 85610

== ENCOUNTER 2021-08-01 12:43 | Outpatient (CLI) | payer MEDICARE, SELFPAY ==
[2021-08-01 13:39] LABS: Anion Gap 10 mmol/L (8-16); Blood Urea Nitrogen 58 mg/dL (9-20); Carbon Dioxide 21 mmol/L (22-30); Chloride 106 mmol/L (98-107); Estimated Glomerular Filt Rate 39; Glucose 118 mg/dL (65-110); Potassium 4.6 mmol/L (3.4-5.0); Sodium 137 mmol/L (137-145)
== END 2021-08-01 12:44 | disposition home or self-care (01) ==
LOC: ANHLAB 12:46
PROVIDERS: PCP Internal Medicine; Visit Provider Internal Medicine Cardiovascular Disease
DX: I50.32 Chronic diastolic (congestive) heart failure (principal)
CPT/HCPCS: 36415; 80048

== ENCOUNTER 2021-08-13 12:30 | Outpatient (CLI) | payer MEDICARE, SELFPAY ==
[2021-08-13 14:42] LABS: Anion Gap 7 mmol/L (8-16); Blood Urea Nitrogen 73 mg/dL (9-20); Calcium 8.9 mg/dL (8.4-10.2); Carbon Dioxide 27 mmol/L (22-30); Chloride 104 mmol/L (98-107); Estimated Glomerular Filt Rate 42; Glucose 128 mg/dL (65-110); Potassium 3.8 mmol/L (3.4-5.0); Sodium 138 mmol/L (137-145)
== END 2021-08-13 12:31 | disposition home or self-care (01) ==
LOC: ANHWCLAB 12:34
PROVIDERS: PCP Internal Medicine; Visit Provider Internal Medicine Cardiovascular Disease
DX: I50.32 Chronic diastolic (congestive) heart failure (principal)
CPT/HCPCS: 36415; 80048

== ENCOUNTER 2021-08-23 11:50 | Outpatient (RCR) | payer MEDICARE, SELFPAY ==
[2021-07-04 16:32] LABS: Basophils Percent Auto 0.2 % (0.2-1.2); Eosinophils Absolute Auto 0.2 K/mm3 (0-0.3); Eosinophils Percent Auto 3.1 % (0-4.4); Hemoglobin 10.4 g/dL (14.0-18.0); Immature Granulocyte Absolute 0.01 K/mm3 (0.00-0.031); Immature Granulocyte Percent A 0.2 % (0-0.5); Immature Platelet Fraction Pct 3.5 % (0.9-11.2); Lymphocytes Absolute Auto 1.41 K/mm3 (0.9-3.2); Lymphocytes Percent Auto 25.5 % (18.3-44.2); Mean Corpuscular HGB Conc 30.6 g/dl (32-36); Mean Corpuscular Hemoglobin 28.5 pg (26-34); Mean Corpuscular Volume 93.2 fl (80-100); Mean Platelet Volume 12.2 fl (7.4-10.4); Monocytes Absolute Auto 0.4 K/mm3 (0.1-0.6); Monocytes Percent Auto 7.4 % (2.6-8.5); Neutrophils Absolute Auto 3.5 K/mm3 (1.3-6.7); Neutrophils Percent Auto 63.6 % (45.5-73.1); Platelet Count Result 100 k/mm3 (150-375); Red Blood Count 3.65 M/mm3 (4.6-6.20); Red Cell Distribution Width 16.2 % (11.5-14.5); White Blood Count 5.5 K/mm3 (4.5-10.0)
[2021-07-04 16:37] LABS: Albumin Level 3.9 g/dL (3.5-5.1); Anion Gap 9 mmol/L (8-16); Blood Urea Nitrogen 84 mg/dL (9-20); Calcium 9.2 mg/dL (8.4-10.2); Carbon Dioxide 25 mmol/L (22-30); Chloride 102 mmol/L (98-107); Estimated Glomerular Filt Rate 39; Glucose 133 mg/dL (65-110); Phosphorus 3.8 mg/dL (2.5-4.5); Potassium 4.2 mmol/L (3.4-5.0); Sodium 136 mmol/L (137-145); Uric Acid 4.2 mg/dL (3.5-8.5)
[2021-07-04 16:44] LABS: INR 1.2; Prothrombin Time 14.8 Seconds (11.1-14.7)
[2021-07-04 17:16] LABS: Ovalocytes 1+ (NORMAL); Platelet Estimate Decreased (Adequate)
[2021-07-08 07:41] LABS: Tacrolimus Prograf 5.9 mcg/L
[2021-08-23 12:48] LABS: Basophils Percent Auto 0.4 % (0.2-1.2); Eosinophils Absolute Auto 0.2 K/mm3 (0-0.3); Eosinophils Percent Auto 4.7 % (0-4.4); Hemoglobin 10.6 g/dL (14.0-18.0); Immature Granulocyte Absolute 0.01 K/mm3 (0.00-0.031); Immature Granulocyte Percent A 0.2 % (0-0.5); Lymphocytes Absolute Auto 1.91 K/mm3 (0.9-3.2); Lymphocytes Percent Auto 42.4 % (18.3-44.2); Mean Corpuscular HGB Conc 31.2 g/dl (32-36); Mean Corpuscular Hemoglobin 28.6 pg (26-34); Mean Corpuscular Volume 91.6 fl (80-100); Mean Platelet Volume 11.9 fl (7.4-10.4); Monocytes Absolute Auto 0.5 K/mm3 (0.1-0.6); Monocytes Percent Auto 10.9 % (2.6-8.5); Neutrophils Absolute Auto 1.9 K/mm3 (1.3-6.7); Neutrophils Percent Auto 41.4 % (45.5-73.1); Platelet Count Result 136 k/mm3 (150-375); Red Blood Count 3.71 M/mm3 (4.6-6.20); Red Cell Distribution Width 16.2 % (11.5-14.5); White Blood Count 4.5 K/mm3 (4.5-10.0)
[2021-08-23 12:59] LABS: INR 2.3; Prothrombin Time 24.3 Seconds (11.1-14.7)
[2021-08-23 22:52] LABS: Alanine Aminotransferase 25 U/L (6-50); Albumin Level 4.2 g/dL (3.5-5.1); Alkaline Phosphatase 50 U/L (38-126); Aspartate Amino Transferase 32 U/L (17-59); Bilirubin,Total 0.5 mg/dL (0.2-1.3); Uric Acid 4.8 mg/dL (3.5-8.5)
[2021-08-26 16:02] LABS: Tacrolimus Prograf 6.5 mcg/L
== END 2021-10-02 23:59 | disposition home or self-care (01) ==
LOC: ANHWCLAB 11:50
PROVIDERS: PCP Internal Medicine; Visit Provider Internal Medicine
DX: E78.2 Mixed hyperlipidemia (principal); M1A.09X0 Idiopathic chronic gout, multiple sites, without tophus (tophi); Z94.0 Kidney transplant status; Z79.899 Other long term (current) drug therapy
CPT/HCPCS: 36415; 80069; 80076; 80197; 84550; 85025; 85055; 85610

== ENCOUNTER 2021-08-23 11:52 | Outpatient (CLI) | payer MEDICARE, SELFPAY ==
[2021-08-23 13:01] LABS: Anion Gap 8 mmol/L (8-16); Blood Urea Nitrogen 110 mg/dL (9-20); Calcium 9.5 mg/dL (8.4-10.2); Carbon Dioxide 27 mmol/L (22-30); Chloride 101 mmol/L (98-107); Cholesterol 160 mg/dL (0-200); Estimated Glomerular Filt Rate 30; Glucose 122 mg/dL (65-110); HDL Direct 36 mg/dL; Potassium 4.1 mmol/L (3.4-5.0); Sodium 136 mmol/L (137-145); Triglycerides 121 mg/dL (<150)
[2021-08-23 13:12] LABS: LDL Cholesterol Direct 66 mg/dL
[2021-08-23 13:18] LABS: Free T4 Free Thyroxine 0.97 ng/mL (0.78-2.19)
[2021-08-23 22:54] LABS: Hemoglobin A1C 5.6 % (<5.7)
== END 2021-08-23 11:53 | disposition home or self-care (01) ==
LOC: ANHLAB 11:57
PROVIDERS: PCP Internal Medicine; Visit Provider Internal Medicine
DX: Z13.29 Encounter for screening for other suspected endocrine disorder (principal); E78.2 Mixed hyperlipidemia; E11.9 Type 2 diabetes mellitus without complications; Z79.899 Other long term (current) drug therapy
CPT/HCPCS: 36415; 80048; 80061; 80076; 80197; 83036; 84439; 84443; 84550; 85025; 85610

== ENCOUNTER 2021-12-16 13:41 | Outpatient (CLI) | payer MEDICARE, SELFPAY ==
[2021-12-16 14:27] LABS: Anion Gap 11 mmol/L (8-16); Blood Urea Nitrogen 50 mg/dL (9-20); Calcium 8.9 mg/dL (8.4-10.2); Carbon Dioxide 21 mmol/L (22-30); Chloride 106 mmol/L (98-107); Estimated Glomerular Filt Rate 49; Glucose 161 mg/dL (65-110); Potassium 4.4 mmol/L (3.4-5.0); Sodium 138 mmol/L (137-145)
== END 2021-12-16 13:42 | disposition home or self-care (01) ==
PROVIDERS: PCP Internal Medicine; Visit Provider Internal Medicine Cardiovascular Disease
DX: I10 Essential (primary) hypertension (principal)
CPT/HCPCS: 36415; 80048

== ENCOUNTER 2021-12-31 11:51 | Outpatient (RCR) | payer MEDICARE, SELFPAY ==
[2021-10-30 15:37] LABS: Basophils Percent Auto 0.4 % (0.2-1.2); Eosinophils Absolute Auto 0.1 K/mm3 (0-0.3); Eosinophils Percent Auto 2.5 % (0-4.4); Hematocrit 34.7 % (42.0-52.0); Hemoglobin 10.6 g/dL (14.0-18.0); Immature Granulocyte Absolute 0.02 K/mm3 (0.00-0.031); Immature Granulocyte Percent A 0.4 % (0-0.5); Lymphocytes Absolute Auto 1.59 K/mm3 (0.9-3.2); Lymphocytes Percent Auto 28.9 % (18.3-44.2); Mean Corpuscular HGB Conc 30.5 g/dl (32-36); Mean Corpuscular Hemoglobin 27.5 pg (26-34); Mean Corpuscular Volume 89.9 fl (80-100); Monocytes Absolute Auto 0.4 K/mm3 (0.1-0.6); Monocytes Percent Auto 7.3 % (2.6-8.5); Neutrophils Absolute Auto 3.3 K/mm3 (1.3-6.7); Neutrophils Percent Auto 60.5 % (45.5-73.1); Platelet Count Result 115 k/mm3 (150-375); Red Blood Count 3.86 M/mm3 (4.6-6.20); Red Cell Distribution Width 17.7 % (11.5-14.5); White Blood Count 5.5 K/mm3 (4.5-10.0)
[2021-10-30 15:52] LABS: INR 1.8; Prothrombin Time 20.1 Seconds (11.1-14.7)
[2021-10-30 15:56] LABS: Alanine Aminotransferase 28 U/L (6-50); Albumin Level 4.2 g/dL (3.5-5.1); Alkaline Phosphatase 48 U/L (38-126); Anion Gap 14 mmol/L (8-16); Aspartate Amino Transferase 35 U/L (17-59); Bilirubin,Total 0.5 mg/dL (0.2-1.3); Blood Urea Nitrogen 75 mg/dL (9-20); Calcium 9.5 mg/dL (8.4-10.2); Carbon Dioxide 24 mmol/L (22-30); Chloride 100 mmol/L (98-107); Cholesterol 159 mg/dL (0-200); Estimated Glomerular Filt Rate 39; Glucose 151 mg/dL (65-110); HDL Direct 36 mg/dL; Phosphorus 3.9 mg/dL (2.5-4.5); Potassium 4.2 mmol/L (3.4-5.0); Sodium 138 mmol/L (137-145); Triglycerides 191 mg/dL (<150); Uric Acid 3.8 mg/dL (3.5-8.5)
[2021-10-30 16:07] LABS: LDL Cholesterol Direct 65 mg/dL
[2021-11-02 05:27] LABS: Tacrolimus Prograf 7.1 mcg/L
[2021-11-26 12:29] LABS: INR 2.7; Prothrombin Time 27.7 Seconds (11.1-14.7)
[2021-11-26 12:35] LABS: Alanine Aminotransferase 28 U/L (6-50); Albumin Level 4.6 g/dL (3.5-5.1); Alkaline Phosphatase 49 U/L (38-126); Anion Gap 14 mmol/L (8-16); Aspartate Amino Transferase 34 U/L (17-59); Blood Urea Nitrogen 112 mg/dL (9-20); Calcium 9.8 mg/dL (8.4-10.2); Carbon Dioxide 30 mmol/L (22-30); Chloride 91 mmol/L (98-107); Cholesterol 164 mg/dL (0-200); Estimated Glomerular Filt Rate 27; Glucose 143 mg/dL (65-110); HDL Direct 32 mg/dL; Phosphorus 5.1 mg/dL (2.5-4.5); Potassium 3.5 mmol/L (3.4-5.0); Sodium 135 mmol/L (137-145); Triglycerides 138 mg/dL (<150); Uric Acid 4.9 mg/dL (3.5-8.5)
[2021-11-26 12:36] LABS: Basophils Percent Auto 0.4 % (0.2-1.2); Eosinophils Absolute Auto 0.2 K/mm3 (0-0.3); Hematocrit 36.7 % (42.0-52.0); Hemoglobin 11.4 g/dL (14.0-18.0); Immature Granulocyte Absolute 0.01 K/mm3 (0.00-0.031); Immature Granulocyte Percent A 0.2 % (0-0.5); Lymphocytes Percent Auto 46.5 % (18.3-44.2); Mean Corpuscular HGB Conc 31.1 g/dl (32-36); Mean Corpuscular Hemoglobin 27.5 pg (26-34); Mean Corpuscular Volume 88.6 fl (80-100); Mean Platelet Volume 11.6 fl (7.4-10.4); Monocytes Absolute Auto 0.5 K/mm3 (0.1-0.6); Monocytes Percent Auto 10.6 % (2.6-8.5); Neutrophils Absolute Auto 1.8 K/mm3 (1.3-6.7); Neutrophils Percent Auto 38.3 % (45.5-73.1); Platelet Count Result 128 k/mm3 (150-375); Red Blood Count 4.14 M/mm3 (4.6-6.20); Red Cell Distribution Width 17.5 % (11.5-14.5); White Blood Count 4.7 K/mm3 (4.5-10.0)
[2021-11-26 12:47] LABS: LDL Cholesterol Direct 74 mg/dL
[2021-11-28 14:43] LABS: Tacrolimus Prograf 6.7 mcg/L
[2021-12-31 12:17] LABS: Basophils Percent Auto 0.4 % (0.2-1.2); Eosinophils Absolute Auto 0.2 K/mm3 (0-0.3); Eosinophils Percent Auto 3.2 % (0-4.4); Hematocrit 34.5 % (42.0-52.0); Hemoglobin 10.5 g/dL (14.0-18.0); Immature Granulocyte Absolute 0.01 K/mm3 (0.00-0.031); Immature Granulocyte Percent A 0.2 % (0-0.5); Lymphocytes Absolute Auto 1.68 K/mm3 (0.9-3.2); Lymphocytes Percent Auto 33.9 % (18.3-44.2); Mean Corpuscular HGB Conc 30.4 g/dl (32-36); Mean Platelet Volume 10.8 fl (7.4-10.4); Monocytes Absolute Auto 0.6 K/mm3 (0.1-0.6); Monocytes Percent Auto 12.1 % (2.6-8.5); Neutrophils Absolute Auto 2.5 K/mm3 (1.3-6.7); Neutrophils Percent Auto 50.2 % (45.5-73.1); Platelet Count Result 116 k/mm3 (150-375); Red Blood Count 3.75 M/mm3 (4.6-6.20); Red Cell Distribution Width 17.4 % (11.5-14.5)
[2021-12-31 12:28] LABS: INR 1.7
[2021-12-31 12:31] LABS: Alanine Aminotransferase 35 U/L (6-50); Albumin Level 4.2 g/dL (3.5-5.1); Alkaline Phosphatase 45 U/L (38-126); Anion Gap 13 mmol/L (8-16); Aspartate Amino Transferase 32 U/L (17-59); Bilirubin,Total 0.7 mg/dL (0.2-1.3); Blood Urea Nitrogen 60 mg/dL (9-20); Calcium 9.5 mg/dL (8.4-10.2); Carbon Dioxide 30 mmol/L (22-30); Chloride 99 mmol/L (98-107); Cholesterol 146 mg/dL (0-200); Estimated Glomerular Filt Rate 42; Glucose 156 mg/dL (65-110); HDL Direct 36 mg/dL; Phosphorus 3.1 mg/dL (2.5-4.5); Potassium 4.3 mmol/L (3.4-5.0); Sodium 142 mmol/L (137-145); Triglycerides 119 mg/dL (<150); Uric Acid 4.3 mg/dL (3.5-8.5)
[2021-12-31 12:41] LABS: LDL Cholesterol Direct 64 mg/dL
[2022-01-03 07:40] LABS: Tacrolimus Prograf 6.8 mcg/L
== END 2022-01-28 23:59 | disposition home or self-care (01) ==
LOC: ANHLAB 11:51
PROVIDERS: PCP Internal Medicine; Referring Provider Internal Medicine; Visit Provider Internal Medicine Rheumatology
DX: Z94.0 Kidney transplant status (principal); Z79.899 Other long term (current) drug therapy
CPT/HCPCS: 36415; 80061; 80069; 80076; 80197; 84550; 85025; 85610

== ENCOUNTER 2022-01-05 13:18 | Emergency (ER) | payer MEDICARE, SELFPAY ==
[2022-01-05 13:53] VITALS: BP 135/61; PULSE 60; RESP 18; TEMP 36.2; O2SAT 99
--- NOTE | 2022-01-05 15:06 | ED.FALL ---
HPI - Fall General Chief Complaint: Fall Stated Complaint: Fall Time Seen by Provider: 01/05/22 15:06 Source: patient Mode of arrival: ambulatory Limitations: no limitations History of Present Illness HPI Narrative: 81-year-old male presents with skin tear to left forearm. States that he was bending down to pet his dog and put his weight onto left side and fell over. He states that his left leg is weak. Left forearm hit dining room chair. clean wound and applied dressing at home. Patient denies hitting head, no LOC. no deformity noted. All systems reviewed and negative except as noted above. Related Data Home Medications Medication Instructions Recorded Confirmed ezetimibe 10 mg tablet (Zetia) 10 mg PO DAILY 01/17/19 01/05/22 prednisone 5 mg tablet 5 mg PO DAILY 01/17/19 01/05/22 acetaminophen 500 mg tablet 500 mg PO Q4H PRN Pain 01/18/19 01/05/22 (Tylenol Extra Strength) allopurinol 100 mg tablet 300 mg PO DAILY 10/25/19 01/05/22 carvedilol 6.25 mg tablet 6.25 mg PO Q12H 10/25/19 01/05/22 colchicine 0.6 mg tablet 0.6 mg PO .MWF 10/25/19 01/05/22 tacrolimus 1 mg capsule,extended 1 mg PO QAM 05/03/20 01/05/22 release 24 hr lidocaine 4 % topical patch 2 patch topical DAILY PRN Pain 07/18/20 01/05/22 (Aspercreme (lidocaine)) icosapent ethyl 1 gram capsule 4 g PO DAILY 08/09/20 01/05/22 (Vascepa) amoxicillin 500 mg tablet 500 mg PO Q12H 01/24/21 01/05/22 cholecalciferol (vitamin D3) 50 2,400 unit PO DAILY 09/09/21 01/05/22 mcg (2,000 unit) capsule fluticasone propionate 50 2 spray intranasal DAILY 10/24/21 01/05/22 mcg/actuation nasal spray,suspension potassium chloride 20 mEq 40 meq PO DAILY 10/24/21 01/05/22 tablet,extended release acetaminophen 325 mg capsule 650 mg PO Q4H PRN Pain 12/11/21 01/05/22 bumetanide 1 mg tablet 1 mg PO BID 12/11/21 01/05/22 hydralazine 50 mg tablet 50 mg PO TID 12/11/21 01/05/22 warfarin 1 mg tablet 2 mg PO .Sat-Sun 12/11/21 01/05/22 Allergies Allergy/AdvReac Type Severity Reaction Status Date / Time amlodipine Allergy Severe Other Verified 01/05/22 14:50 Heparin Analogues Allergy Unknown unknown Verified 01/05/22 14:50 morphine Allergy Unknown unknown Verified 01/05/22 14:50 Review of Systems Review of Systems: CONSTITUTIONAL: Denies fever, chills, or sweats. EYES: Denies visual changes, redness, or discharge. ENT: Denies rhinorrhea, congestion, sore throat, or otalgia. CARDIOVASCULAR: Denies chest pain, palpitations, or edema. RESPIRATORY: Denies cough or dyspnea. GASTROINTESTINAL: Denies abdominal pain, nausea, vomiting, or diarrhea. GENITOURINARY: Denies dysuria or hematuria. SKIN: Reports skin tear to left forearm. MUSCULOSKELETAL: Denies back pain, joint pain, or myalgia. NEUROLOGIC: Denies headache, numbness, or weakness. PSYCHIATRIC: Denies anxiety or depression. All other systems reviewed are negative, except as documented in HPI. [facility] Past Medical History Medical History (Updated 01/05/22 @ 15:48 by Patricia Brown NP) A-fib ASHD (arteriosclerotic heart disease) Bilateral hearing loss Black tarry stools Blindness of left eye BMI 26.0-26.9,adult BMI 28.0-28.9,adult BRBPR (bright red blood per rectum) Cardiac pacemaker in situ Cellulitis of left lower extremity Cerumen impaction Chronic rhinitis CKD (chronic kidney disease) Cognitive decline Dehydration Dependent edema Depression Diarrhea Diastolic congestive heart failure Diverticulitis DM type 2 (diabetes mellitus, type 2) Ecchymosis Elevated hemoglobin A1c Elevated serum creatinine Encounter for routine adult health examination without abnormal findings Follow up Gout Gout of left ankle Hearing loss Hematoma Hx of sarcoidosis Hyperextension injury of finger of right hand Hypotension Impaired functional mobility, balance, gait, and endurance Infective endocarditis Left wrist pain Nausea and vomiting 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
== END 2022-01-05 15:53 | disposition home or self-care (01) ==
PROVIDERS: Emergency Provider Nurse Practitioner Family; PCP Internal Medicine
DX: S51.812A Laceration without foreign body of left forearm, initial encounter (principal); W19.XXXA Unspecified fall, initial encounter; I48.91 Unspecified atrial fibrillation; I25.10 Atherosclerotic heart disease of native coronary artery without angina pectoris; Z95.0 Presence of cardiac pacemaker; M10.9 Gout, unspecified; G47.33 Obstructive sleep apnea (adult) (pediatric); I13.0 Hypertensive heart and chronic kidney disease with heart failure and stage 1 through stage 4 chronic kidney disease, or unspecified chronic kidney disease; E11.22 Type 2 diabetes mellitus with diabetic chronic kidney disease; N18.9 Chronic kidney disease, unspecified; I50.30 Unspecified diastolic (congestive) heart failure; Z79.01 Long term (current) use of anticoagulants
CPT/HCPCS: 99212; G0463

== ENCOUNTER 2022-01-08 09:47 | Emergency (ER) | payer MEDICARE, SELFPAY ==
[2022-01-08 09:56] VITALS: BP 152/78; PULSE 60; RESP 20; TEMP 36.5; O2SAT 100
--- NOTE | 2022-01-08 11:40 | ED.SKABFB ---
HPI - Skin/Abscess/Foreign Bdy General Chief complaint: Skin/Abscess/Foreign Body Stated complaint: skin tear L arm Time Seen by Provider: 01/08/22 10:58 Source: patient Mode of arrival: ambulatory Limitations: no limitations History of Present Illness HPI narrative: Patient is an 81-year-old male who presents the ED with report of a skin tear to his left forearm. Patient reports he tripped and fell on Thursday and hit his arm against a piece of furniture. He sustained a large skin tear to his left forearm. He is on warfarin d/t Hx of AFIB, most recent INR therapeutic. He has had persistent bleeding from the skin tear with dressing changes, which prompted his presentation. No further injury. No fevers, redness, swelling surrounding. Related Data Home Medications Medication Instructions Recorded Confirmed ezetimibe 10 mg tablet (Zetia) 10 mg PO DAILY 01/17/19 01/05/22 prednisone 5 mg tablet 5 mg PO DAILY 01/17/19 01/05/22 acetaminophen 500 mg tablet 500 mg PO Q4H PRN Pain 01/18/19 01/05/22 (Tylenol Extra Strength) allopurinol 100 mg tablet 300 mg PO DAILY 10/25/19 01/05/22 carvedilol 6.25 mg tablet 6.25 mg PO Q12H 10/25/19 01/05/22 colchicine 0.6 mg tablet 0.6 mg PO .MWF 10/25/19 01/05/22 tacrolimus 1 mg capsule,extended 1 mg PO QAM 05/03/20 01/05/22 release 24 hr lidocaine 4 % topical patch 2 patch topical DAILY PRN Pain 07/18/20 01/05/22 (Aspercreme (lidocaine)) icosapent ethyl 1 gram capsule 4 g PO DAILY 08/09/20 01/05/22 (Vascepa) amoxicillin 500 mg tablet 500 mg PO Q12H 01/24/21 01/05/22 cholecalciferol (vitamin D3) 50 2,400 unit PO DAILY 09/09/21 01/05/22 mcg (2,000 unit) capsule fluticasone propionate 50 2 spray intranasal DAILY 10/24/21 01/05/22 mcg/actuation nasal spray,suspension potassium chloride 20 mEq 40 meq PO DAILY 10/24/21 01/05/22 tablet,extended release acetaminophen 325 mg capsule 650 mg PO Q4H PRN Pain 12/11/21 01/05/22 bumetanide 1 mg tablet 1 mg PO BID 12/11/21 01/05/22 hydralazine 50 mg tablet 50 mg PO TID 12/11/21 01/05/22 warfarin 1 mg tablet 2 mg PO .Sat-Sun 12/11/21 01/05/22 Allergies Allergy/AdvReac Type Severity Reaction Status Date / Time amlodipine Allergy Severe Other Verified 01/05/22 14:50 Heparin Analogues Allergy Unknown unknown Verified 01/05/22 14:50 morphine Allergy Unknown unknown Verified 01/05/22 14:50 Review of Systems Review of Systems: CONSTITUTIONAL: Denies fever, chills, or sweats. SKIN: Reports skin tear to left forearm. Denies tenderness or swelling surrounding. MUSCULOSKELETAL: Denies pain. All systems reviewed & are unremarkable except as noted in HPI and below PMFSH Past Medical History Medical History (Updated 01/08/22 @ 11:42 by Madelaine Mirza PA-C) A-fib ASHD (arteriosclerotic heart disease) Bilateral hearing loss Black tarry stools Blindness of left eye BMI 26.0-26.9,adult BMI 28.0-28.9,adult BRBPR (bright red blood per rectum) Cardiac pacemaker in situ Cellulitis of left lower extremity Cerumen impaction Chronic rhinitis CKD (chronic kidney disease) Cognitive decline Dehydration Dependent edema Depression Diarrhea Diastolic congestive heart failure Diverticulitis DM type 2 (diabetes mellitus, type 2) Ecchymosis Elevated hemoglobin A1c Elevated serum creatinine Encounter for routine adult health examination without abnormal findings Follow up Gout Gout of left ankle Hearing loss Hematoma Hx of sarcoidosis Hyperextension injury of finger of right hand Hypotension Impaired functional mobility, balance, gait, and endurance Infective endocarditis Left wrist pain Nausea and vomiting 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
== END 2022-01-08 11:57 | disposition home or self-care (01) ==
PROVIDERS: Emergency Provider Emergency Medicine; PCP Internal Medicine
DX: S51.812A Laceration without foreign body of left forearm, initial encounter (principal); Z79.01 Long term (current) use of anticoagulants; I48.91 Unspecified atrial fibrillation; I25.10 Atherosclerotic heart disease of native coronary artery without angina pectoris; Z95.0 Presence of cardiac pacemaker; N18.9 Chronic kidney disease, unspecified; F32.9 Major depressive disorder, single episode, unspecified; I50.9 Heart failure, unspecified; E11.9 Type 2 diabetes mellitus without complications; G47.30 Sleep apnea, unspecified; W22.03XA Walked into furniture, initial encounter
CPT/HCPCS: 99282

== ENCOUNTER 2022-04-29 11:19 | Outpatient (RCR) | payer MEDICARE, SELFPAY ==
[2022-02-04 16:51] LABS: Hematocrit 31.5 % (42.0-52.0); Immature Granulocyte Percent A 0.2 % (0-0.5); Lymphocytes Percent Auto 29.5 % (18.3-44.2); Mean Corpuscular HGB Conc 31.7 g/dl (32-36); Mean Corpuscular Hemoglobin 28.1 pg (26-34); Mean Corpuscular Volume 88.5 fl (80-100); Mean Platelet Volume 12.3 fl (7.4-10.4); Monocytes Percent Auto 9.1 % (2.6-8.5); Neutrophils Percent Auto 57.9 % (45.5-73.1); Platelet Count Result 120 k/mm3 (150-375); Red Blood Count 3.56 M/mm3 (4.6-6.20); Red Cell Distribution Width 15.4 % (11.5-14.5); White Blood Count 4.8 K/mm3 (4.5-10.0)
[2022-02-04 16:52] LABS: Basophils Percent Auto 0.2 % (0.2-1.2); Eosinophils Absolute Auto 0.2 K/mm3 (0-0.3); Eosinophils Percent Auto 3.1 % (0-4.4); Immature Granulocyte Absolute 0.01 K/mm3 (0.00-0.031); Lymphocytes Absolute Auto 1.42 K/mm3 (0.9-3.2); Monocytes Absolute Auto 0.4 K/mm3 (0.1-0.6); Neutrophils Absolute Auto 2.8 K/mm3 (1.3-6.7)
[2022-02-04 16:59] LABS: INR 2.4; Prothrombin Time 25.5 Seconds (11.1-14.7)
[2022-02-04 17:09] LABS: Free T4 Free Thyroxine 0.97 ng/mL (0.78-2.19)
[2022-02-04 17:20] LABS: Hemoglobin A1C 6.7 % (<5.7)
[2022-02-04 17:32] LABS: Alanine Aminotransferase 28 U/L (6-50); Alkaline Phosphatase 42 U/L (38-126); Anion Gap 9 mmol/L (8-16); Aspartate Amino Transferase 32 U/L (17-59); Bilirubin,Total 0.4 mg/dL (0.2-1.3); Blood Urea Nitrogen 66 mg/dL (9-20); Calcium 9.3 mg/dL (8.4-10.2); Carbon Dioxide 23 mmol/L (22-30); Chloride 103 mmol/L (98-107); Cholesterol 134 mg/dL (0-200); Estimated Glomerular Filt Rate 42; Glucose 164 mg/dL (65-110); HDL Direct 37 mg/dL; Phosphorus 2.7 mg/dL (2.5-4.5); Potassium 4.5 mmol/L (3.4-5.0); Sodium 135 mmol/L (137-145); Triglycerides 149 mg/dL (<150); Uric Acid 3.9 mg/dL (3.5-8.5)
[2022-02-04 17:43] LABS: LDL Cholesterol Direct 58 mg/dL
[2022-02-06 19:37] LABS: Tacrolimus Prograf 6.6 mcg/L
[2022-03-07 11:38] LABS: Basophils Percent Auto 0.2 % (0.2-1.2); Eosinophils Absolute Auto 0.2 K/mm3 (0-0.3); Hematocrit 35.5 % (42.0-52.0); Hemoglobin 11.2 g/dL (14.0-18.0); Lymphocytes Absolute Auto 1.63 K/mm3 (0.9-3.2); Lymphocytes Percent Auto 38.6 % (18.3-44.2); Mean Corpuscular HGB Conc 31.5 g/dl (32-36); Mean Corpuscular Hemoglobin 28.4 pg (26-34); Mean Corpuscular Volume 90.1 fl (80-100); Monocytes Absolute Auto 0.5 K/mm3 (0.1-0.6); Monocytes Percent Auto 10.7 % (2.6-8.5); Neutrophils Percent Auto 46.5 % (45.5-73.1); Platelet Count Result 115 k/mm3 (150-375); Red Blood Count 3.94 M/mm3 (4.6-6.20); Red Cell Distribution Width 15.7 % (11.5-14.5); White Blood Count 4.2 K/mm3 (4.5-10.0)
[2022-03-07 11:51] LABS: Alanine Aminotransferase 34 U/L (6-50); Albumin Level 4.2 g/dL (3.5-5.1); Alkaline Phosphatase 49 U/L (38-126); Anion Gap 5 mmol/L (8-16); Aspartate Amino Transferase 32 U/L (17-59); Bilirubin,Total 0.7 mg/dL (0.2-1.3); Blood Urea Nitrogen 69 mg/dL (9-20); Calcium 9.5 mg/dL (8.4-10.2); Carbon Dioxide 27 mmol/L (22-30); Chloride 103 mmol/L (98-107); Estimated Glomerular Filt Rate 39; Glucose 115 mg/dL (65-110); Potassium 4.1 mmol/L (3.4-5.0); Sodium 135 mmol/L (137-145)
[2022-03-31 12:42] LABS: Basophils Percent Auto 0.4 % (0.2-1.2); Eosinophils Absolute Auto 0.1 K/mm3 (0-0.3); Hemoglobin 10.6 g/dL (14.0-18.0); Immature Granulocyte Absolute 0.01 K/mm3 (0.00-0.031); Immature Granulocyte Percent A 0.2 % (0-0.5); Lymphocytes Absolute Auto 1.62 K/mm3 (0.9-3.2); Lymphocytes Percent Auto 34.5 % (18.3-44.2); Mean Corpuscular HGB Conc 32.1 g/dl (32-36); Mean Corpuscular Hemoglobin 29.1 pg (26-34); Mean Corpuscular Volume 90.7 fl (80-100); Mean Platelet Volume 12.3 fl (7.4-10.4); Monocytes Absolute Auto 0.4 K/mm3 (0.1-0.6); Monocytes Percent Auto 9.4 % (2.6-8.5); Neutrophils Absolute Auto 2.5 K/mm3 (1.3-6.7); Neutrophils Percent Auto 52.5 % (45.5-73.1); Platelet Count Result 100 k/mm3 (150-375); Red Blood Count 3.64 M/mm3 (4.6-6.20); Red Cell Distribution Width 15.8 % (11.5-14.5); White Blood Count 4.7 K/mm3 (4.5-10.0)
[2022-03-31 12:55] LABS: INR 2.7; Prothrombin Time 28.1 Seconds (11.1-14.7)
[2022-03-31 12:56] LABS: Alanine Aminotransferase 48 U/L (6-50); Alkaline Phosphatase 49 U/L (38-126); Anion Gap 7 mmol/L (8-16); Aspartate Amino Transferase 53 U/L (17-59); Bilirubin,Total 0.8 mg/dL (0.2-1.3); Blood Urea Nitrogen 70 mg/dL (9-20); Calcium 9.3 mg/dL (8.4-10.2); Carbon Dioxide 27 mmol/L (22-30); Chloride 102 mmol/L (98-107); Cholesterol 145 mg/dL (0-200); Estimated Glomerular Filt Rate 39; Glucose 137 mg/dL (65-110); HDL Direct 35 mg/dL; Phosphorus 3.2 mg/dL (2.5-4.5); Sodium 136 mmol/L (137-145); Triglycerides 160 mg/dL (<150)
[2022-03-31 13:07] LABS: LDL Cholesterol Direct 59 mg/dL
[2022-04-02 13:45] LABS: Tacrolimus Prograf 4.3 mcg/L
[2022-04-29 17:09] LABS: Basophils Percent Auto 0.5 % (0.2-1.2); Eosinophils Absolute Auto 0.1 K/mm3 (0-0.3); Hematocrit 36.4 % (42.0-52.0); Hemoglobin 11.3 g/dL (14.0-18.0); Immature Granulocyte Absolute 0.01 K/mm3 (0.00-0.031); Immature Granulocyte Percent A 0.2 % (0-0.5); Lymphocytes Absolute Auto 1.43 K/mm3 (0.9-3.2); Lymphocytes Percent Auto 33.2 % (18.3-44.2); Mean Corpuscular Hemoglobin 28.5 pg (26-34); Mean Corpuscular Volume 91.9 fl (80-100); Mean Platelet Volume 12.4 fl (7.4-10.4); Monocytes Absolute Auto 0.4 K/mm3 (0.1-0.6); Monocytes Percent Auto 8.4 % (2.6-8.5); Neutrophils Absolute Auto 2.4 K/mm3 (1.3-6.7); Neutrophils Percent Auto 54.7 % (45.5-73.1); Platelet Count Result 106 k/mm3 (150-375); Red Blood Count 3.96 M/mm3 (4.6-6.20); Red Cell Distribution Width 15.9 % (11.5-14.5); White Blood Count 4.3 K/mm3 (4.5-10.0)
[2022-04-29 17:24] LABS: INR 2.4; Prothrombin Time 25.5 Seconds (11.1-14.7)
[2022-04-29 18:02] LABS: Albumin Level 4.1 g/dL (3.5-5.1); Anion Gap 5 mmol/L (8-16); Blood Urea Nitrogen 64 mg/dL (9-20); Calcium 9.5 mg/dL (8.4-10.2); Carbon Dioxide 27 mmol/L (22-30); Chloride 100 mmol/L (98-107); Estimated Glomerular Filt Rate 49; Glucose 197 mg/dL (65-110); Potassium 4.6 mmol/L (3.4-5.0); Sodium 132 mmol/L (137-145); Uric Acid 3.9 mg/dL (3.5-8.5)
[2022-05-02 00:41] LABS: Tacrolimus Prograf 6.7 mcg/L
== END 2022-05-05 23:59 | disposition home or self-care (01) ==
LOC: ANHWCLAB 11:19
PROVIDERS: PCP Internal Medicine; Visit Provider Internal Medicine
DX: E11.9 Type 2 diabetes mellitus without complications (principal); E78.2 Mixed hyperlipidemia; M1A.09X0 Idiopathic chronic gout, multiple sites, without tophus (tophi); Z79.899 Other long term (current) drug therapy; Z94.0 Kidney transplant status; Z79.01 Long term (current) use of anticoagulants; Z13.29 Encounter for screening for other suspected endocrine disorder
CPT/HCPCS: 36415; 80053; 80061; 80069; 80076; 80197; 83036; 84100; 84439; 84443; 84550; 85025; 85610

== ENCOUNTER 2022-06-25 15:38 | Outpatient (CLI) | payer MEDICARE, SELFPAY ==
[2022-06-25 16:38] LABS: Basophils Percent Auto 0.2 % (0.2-1.2); Eosinophils Absolute Auto 0.2 K/mm3 (0-0.3); Eosinophils Percent Auto 3.6 % (0-4.4); Hematocrit 33.1 % (42.0-52.0); Hemoglobin 10.5 g/dL (14.0-18.0); Immature Granulocyte Absolute 0.01 K/mm3 (0.00-0.031); Immature Granulocyte Percent A 0.2 % (0-0.5); Lymphocytes Absolute Auto 1.35 K/mm3 (0.9-3.2); Mean Corpuscular HGB Conc 31.7 g/dl (32-36); Mean Corpuscular Hemoglobin 28.6 pg (26-34); Mean Corpuscular Volume 90.2 fl (80-100); Mean Platelet Volume 12.6 fl (7.4-10.4); Monocytes Absolute Auto 0.4 K/mm3 (0.1-0.6); Monocytes Percent Auto 9.2 % (2.6-8.5); Neutrophils Absolute Auto 2.7 K/mm3 (1.3-6.7); Neutrophils Percent Auto 57.8 % (45.5-73.1); Platelet Count Result 107 k/mm3 (150-375); Red Blood Count 3.67 M/mm3 (4.6-6.20); Red Cell Distribution Width 16.1 % (11.5-14.5); White Blood Count 4.7 K/mm3 (4.5-10.0)
[2022-06-25 16:54] LABS: Alanine Aminotransferase 59 U/L (6-50); Albumin Level 4.2 g/dL (3.5-5.1); Alkaline Phosphatase 52 U/L (38-126); Anion Gap 10 mmol/L (8-16); Aspartate Amino Transferase 46 U/L (17-59); Bilirubin,Total 0.7 mg/dL (0.2-1.3); Blood Urea Nitrogen 79 mg/dL (9-20); Calcium 9.3 mg/dL (8.4-10.2); Carbon Dioxide 24 mmol/L (22-30); Chloride 103 mmol/L (98-107); Cholesterol 137 mg/dL (0-200); Estimated Glomerular Filt Rate 34; Glucose 150 mg/dL (65-110); HDL Direct 36 mg/dL; Potassium 4.4 mmol/L (3.4-5.0); Sodium 137 mmol/L (137-145); Triglycerides 228 mg/dL (<150)
[2022-06-25 17:03] LABS: Hemoglobin A1C 6.8 % (<5.7)
[2022-06-25 17:06] LABS: LDL Cholesterol Direct 62 mg/dL
[2022-06-25 17:30] LABS: Free T4 Free Thyroxine 1.12 ng/mL (0.78-2.19)
== END 2022-06-25 15:39 | disposition home or self-care (01) ==
PROVIDERS: PCP Internal Medicine; Visit Provider Internal Medicine
DX: E78.2 Mixed hyperlipidemia (principal); E11.9 Type 2 diabetes mellitus without complications; Z79.899 Other long term (current) drug therapy; Z13.29 Encounter for screening for other suspected endocrine disorder
CPT/HCPCS: 36415; 80053; 80061; 83036; 84439; 84443; 85025

== ENCOUNTER 2022-09-16 21:38 | Emergency (ER) | payer MEDICARE, SELFPAY ==
--- NOTE | ~2022-09-16 | XR_ITS ---
AP and lateral views of the right tibia/fibula Clinical History: Laceration Findings: No acute fracture or dislocation is seen. Osseous alignment is anatomic. There is mild dege nerative change of the tibiotalar joint and naviculocuneiform articulations. Soft tissue laceration n oted at the anterolateral aspect of the midcalf. Total knee arthroplasty hardware is in place. Vascul ar calcifications are present. Impression: Soft tissue laceration of the anterolateral aspect of the midcalf. Degenerative changes of the foot and ankle, as detailed above. Reviewed, dictated and finalized at location M. Impression: Soft tissue laceration of the anterolateral aspect of the midcalf. Degenerative changes of the foot and ankle, as detailed above.
[2022-09-16 21:40] VITALS: BP 134/57; PULSE 59; RESP 18; TEMP 36.4; O2SAT 100
[2022-09-16 23:23] VITALS: BP 146/55; PULSE 60; RESP 16; O2SAT 100
--- NOTE | 2022-09-16 23:55 | ED.LOWEXIN ---
HPI - Extremity Injury (Lower) General Chief Complaint: Extremity Injury, Lower Stated Complaint: fall Time Seen by Provider: 09/16/22 22:49 Source: patient and family Mode of arrival: EMS Limitations: no limitations History of Present Illness HPI Narrative: This is a 82 year old male that presents to the ER for a laceration to the right leg sustained just prior to arrival. Reports he sustained the laceration trying to get up from a recliner on the metal under part of it. He did not fall. Reports bleeding and pain to the area. He takes Warfarin. Denies decreased ROM or numbness. Related Data Home Medications Medication Instructions Recorded Confirmed ezetimibe 10 mg tablet (Zetia) 10 mg PO DAILY 01/17/19 06/25/22 prednisone 5 mg tablet 5 mg PO DAILY 01/17/19 06/25/22 allopurinol 100 mg tablet 300 mg PO DAILY 10/25/19 06/25/22 carvedilol 6.25 mg tablet 6.25 mg PO Q12H 10/25/19 06/25/22 colchicine 0.6 mg tablet 0.6 mg PO .MWF 10/25/19 06/25/22 tacrolimus 1 mg capsule,extended 1 mg PO QAM 05/03/20 06/25/22 release 24 hr lidocaine 4 % topical patch 2 patch topical DAILY PRN Pain 07/18/20 06/25/22 (Aspercreme (lidocaine)) amoxicillin 500 mg tablet 500 mg PO Q12H 01/24/21 06/25/22 cholecalciferol (vitamin D3) 50 2,400 unit PO DAILY 09/09/21 06/25/22 mcg (2,000 unit) capsule fluticasone propionate 50 2 spray intranasal DAILY 10/24/21 06/25/22 mcg/actuation nasal spray,suspension potassium chloride 20 mEq 40 meq PO DAILY 10/24/21 06/25/22 tablet,extended release acetaminophen 325 mg capsule 650 mg PO Q4H PRN Pain 12/11/21 06/25/22 bumetanide 1 mg tablet 1 mg PO BID 12/11/21 06/25/22 hydralazine 50 mg tablet 50 mg PO TID 04/22/22 06/25/22 warfarin 1 mg tablet 1 mg PO DAILY 06/25/22 06/25/22 Allergies Allergy/AdvReac Type Severity Reaction Status Date / Time amlodipine Allergy Severe Other Verified 09/16/22 22:31 Heparin Analogues Allergy Unknown unknown Verified 09/16/22 22:31 morphine Allergy Unknown unknown Verified 09/16/22 22:31 Review of Systems Review of Systems: CONSTITUTIONAL: Denies fever SKIN: Reports laceration NEUROLOGIC: Denies numbness All systems reviewed & are unremarkable except as noted in HPI and below PMFSH Past Medical History Medical History (Updated 09/17/22 @ 01:56 by Bozena Ingram PA-C) A-fib ASHD (arteriosclerotic heart disease) Bilateral hearing loss Black tarry stools Blindness of left eye BMI 26.0-26.9,adult BMI 28.0-28.9,adult BRBPR (bright red blood per rectum) Cardiac pacemaker in situ Cellulitis of left lower extremity Cerumen impaction Chronic rhinitis CKD (chronic kidney disease) Cognitive decline Dehydration Dependent edema Depression Diarrhea Diastolic congestive heart failure Diverticulitis DM type 2 (diabetes mellitus, type 2) Ecchymosis Elevated hemoglobin A1c Elevated serum creatinine Encounter for routine adult health examination without abnormal findings Follow up Generalized weakness Gout Gout of left ankle Hearing loss Hematoma Hx of sarcoidosis Hyperextension injury of finger of right hand Hypotension Impaired functional mobility, balance, gait, and endurance Infective endocarditis Left wrist pain Nausea and vomiting On longterm drug therapy HARPER on CPAP Pedal edema Resting tremor Stasis dermatitis Torn rotator cuff Vision changes Weak urine stream Weakness generalized Weakness of both lower extremities Wound of left lower extremity Surgical History Surgical History H/O aortic valve replacement History of total left knee replacement Hx of kidney transplant Family History Family History Father Family history of coronary artery disease Family history of malignant neoplasm of urinary bladder Acute myocardial infarction Mother Family history of osteoporosis Hypertension Family history of Alzheimer's disease F
[2022-09-17 00:30] VITALS: BP 154/69; PULSE 59; RESP 14; O2SAT 100
[2022-09-17] MEDS: oxyCODONE HCL (*CRX) 5 MG TAB IR PO (01:34)
[2022-09-17 01:59] VITALS: BP 166/73; PULSE 60; RESP 14; O2SAT 100
== END 2022-09-17 03:00 ==
PROVIDERS: Emergency Provider Physician Assistant; PCP Internal Medicine
DX: S81.811A Laceration without foreign body, right lower leg, initial encounter (principal); W26.9XXA Contact with unspecified sharp object(s), initial encounter; I48.91 Unspecified atrial fibrillation; Z79.01 Long term (current) use of anticoagulants; Z95.0 Presence of cardiac pacemaker; N18.9 Chronic kidney disease, unspecified; F32.A Depression, unspecified; I50.9 Heart failure, unspecified; E11.9 Type 2 diabetes mellitus without complications
CPT/HCPCS: 12004; 73590; 99283; A9270

== ENCOUNTER 2022-10-23 10:59 | Outpatient (RCR) | payer MEDICARE, OTHER, SELFPAY ==
[2022-08-07 12:08] LABS: Basophils Percent Auto 0.4 % (0.2-1.2); Eosinophils Absolute Auto 0.1 K/mm3 (0-0.3); Eosinophils Percent Auto 2.7 % (0-4.4); Hematocrit 32.1 % (42.0-52.0); Immature Granulocyte Absolute 0.01 K/mm3 (0.00-0.031); Immature Granulocyte Percent A 0.2 % (0-0.5); Lymphocytes Absolute Auto 1.63 K/mm3 (0.9-3.2); Lymphocytes Percent Auto 33.8 % (18.3-44.2); Mean Corpuscular HGB Conc 31.2 g/dl (32-36); Mean Corpuscular Volume 89.9 fl (80-100); Mean Platelet Volume 12.6 fl (7.4-10.4); Monocytes Absolute Auto 0.6 K/mm3 (0.1-0.6); Monocytes Percent Auto 12.2 % (2.6-8.5); Neutrophils Absolute Auto 2.4 K/mm3 (1.3-6.7); Neutrophils Percent Auto 50.7 % (45.5-73.1); Platelet Count Result 109 k/mm3 (150-375); Red Blood Count 3.57 M/mm3 (4.6-6.20); Red Cell Distribution Width 15.8 % (11.5-14.5); White Blood Count 4.8 K/mm3 (4.5-10.0)
[2022-08-07 12:24] LABS: INR 2.4; Prothrombin Time 28.2 Seconds (11.1-14.7)
[2022-08-07 12:25] LABS: Alanine Aminotransferase 36 U/L (6-50); Alkaline Phosphatase 46 U/L (38-126); Anion Gap 9 mmol/L (8-16); Aspartate Amino Transferase 34 U/L (17-59); Bilirubin,Total 0.6 mg/dL (0.2-1.3); Blood Urea Nitrogen 80 mg/dL (9-20); Calcium 9.2 mg/dL (8.4-10.2); Carbon Dioxide 28 mmol/L (22-30); Chloride 100 mmol/L (98-107); Cholesterol 128 mg/dL (0-200); Estimated Glomerular Filt Rate 32; Glucose 108 mg/dL (65-110); HDL Direct 37 mg/dL; Phosphorus 3.6 mg/dL (2.5-4.5); Sodium 137 mmol/L (137-145); Triglycerides 123 mg/dL (<150); Uric Acid 3.9 mg/dL (3.5-8.5)
[2022-08-07 12:36] LABS: LDL Cholesterol Direct 59 mg/dL
[2022-08-11 01:17] LABS: Tacrolimus Prograf 5.5 mcg/L
[2022-10-23 13:02] LABS: Basophils Percent Auto 0.3 % (0.2-1.2); Eosinophils Absolute Auto 0.2 K/mm3 (0-0.3); Eosinophils Percent Auto 3.3 % (0-4.4); Hematocrit 29.2 % (42.0-52.0); Hemoglobin 8.8 g/dL (14.0-18.0); Immature Granulocyte Absolute 0.02 K/mm3 (0.00-0.031); Immature Granulocyte Percent A 0.3 % (0-0.5); Lymphocytes Absolute Auto 1.11 K/mm3 (0.9-3.2); Lymphocytes Percent Auto 18.2 % (18.3-44.2); Mean Corpuscular HGB Conc 30.1 g/dl (32-36); Mean Corpuscular Hemoglobin 26.7 pg (26-34); Mean Corpuscular Volume 88.5 fl (80-100); Mean Platelet Volume 11.7 fl (7.4-10.4); Monocytes Absolute Auto 0.5 K/mm3 (0.1-0.6); Monocytes Percent Auto 8.2 % (2.6-8.5); Neutrophils Absolute Auto 4.3 K/mm3 (1.3-6.7); Neutrophils Percent Auto 69.7 % (45.5-73.1); Platelet Count Result 164 k/mm3 (150-375); Red Cell Distribution Width 16.6 % (11.5-14.5); White Blood Count 6.1 K/mm3 (4.5-10.0)
[2022-10-23 13:16] LABS: Prothrombin Time 33.3 Seconds (11.1-14.7)
[2022-10-23 13:17] LABS: Alanine Aminotransferase 19 U/L (6-50); Alkaline Phosphatase 86 U/L (38-126); Aspartate Amino Transferase 28 U/L (17-59); Bilirubin,Total 0.7 mg/dL (0.2-1.3); Cholesterol 161 mg/dL (0-200); HDL Direct 33 mg/dL; Phosphorus 2.8 mg/dL (2.5-4.5); Triglycerides 153 mg/dL (<150); Uric Acid 5.6 mg/dL (3.5-8.5)
[2022-10-23 13:28] LABS: LDL Cholesterol Direct 80 mg/dL
== END 2022-11-04 08:51 | disposition home or self-care (01) ==
LOC: ANHLAB 10:59
PROVIDERS: PCP Internal Medicine; Referring Provider Internal Medicine Rheumatology; Visit Provider Internal Medicine
DX: Z51.81 Encounter for therapeutic drug level monitoring (principal); E78.2 Mixed hyperlipidemia; M1A.09X0 Idiopathic chronic gout, multiple sites, without tophus (tophi); Z94.0 Kidney transplant status; Z79.899 Other long term (current) drug therapy; Z79.01 Long term (current) use of anticoagulants
CPT/HCPCS: 36415; 80048; 80053; 80061; 80076; 80197; 84100; 84550; 85025; 85610

== ENCOUNTER 2022-10-23 11:33 | Outpatient (CLI) | payer MEDICARE, SELFPAY ==
[2022-10-23 13:20] LABS: Alanine Aminotransferase 18 U/L (6-50); Albumin Level 3.9 g/dL (3.5-5.1); Alkaline Phosphatase 83 U/L (38-126); Anion Gap 11 mmol/L (8-16); Aspartate Amino Transferase 27 U/L (17-59); Bilirubin,Total 0.7 mg/dL (0.2-1.3); Blood Urea Nitrogen 49 mg/dL (9-20); Calcium 9.8 mg/dL (8.4-10.2); Carbon Dioxide 32 mmol/L (22-30); Chloride 97 mmol/L (98-107); Estimated Glomerular Filt Rate 39; Glucose 152 mg/dL (65-110); Potassium 3.4 mmol/L (3.4-5.0); Sodium 140 mmol/L (137-145)
== END 2022-10-23 11:34 | disposition home or self-care (01) ==
LOC: ANHLAB 11:36
PROVIDERS: PCP Internal Medicine; Visit Provider Family Medicine
DX: N18.6 End stage renal disease (principal)
CPT/HCPCS: 36415; 80053

== ENCOUNTER 2022-10-30 10:26 | Outpatient (CLI) | payer MEDICARE, SELFPAY ==
[2022-10-30 11:54] LABS: Hematocrit 25.2 % (42.0-52.0); Hemoglobin 7.6 g/dL (14.0-18.0); Mean Corpuscular HGB Conc 30.2 g/dl (32-36); Mean Corpuscular Hemoglobin 26.4 pg (26-34); Mean Corpuscular Volume 87.5 fl (80-100); Mean Platelet Volume 11.5 fl (7.4-10.4); Platelet Count Result 167 k/mm3 (150-375); Red Blood Count 2.88 M/mm3 (4.6-6.20); Red Cell Distribution Width 16.8 % (11.5-14.5); White Blood Count 5.5 K/mm3 (4.5-10.0)
[2022-10-30 12:09] LABS: INR 3.9; Prothrombin Time 41.6 Seconds (11.1-14.7)
[2022-10-30 12:12] LABS: Alanine Aminotransferase 16 U/L (6-50); Albumin Level 3.4 g/dL (3.5-5.1); Alkaline Phosphatase 75 U/L (38-126); Anion Gap 7 mmol/L (8-16); Aspartate Amino Transferase 23 U/L (17-59); Bilirubin,Total 0.6 mg/dL (0.2-1.3); Blood Urea Nitrogen 56 mg/dL (9-20); Calcium 9.2 mg/dL (8.4-10.2); Carbon Dioxide 28 mmol/L (22-30); Chloride 100 mmol/L (98-107); Estimated Glomerular Filt Rate 32; Glucose 182 mg/dL (65-110); Potassium 3.5 mmol/L (3.4-5.0); Sodium 135 mmol/L (137-145)
[2022-10-30 14:33] LABS: Vitamin D 25 Hydroxy 62.1 ng/mL
== END 2022-10-30 10:27 | disposition home or self-care (01) ==
PROVIDERS: PCP Internal Medicine; Visit Provider Family Medicine
DX: D64.9 Anemia, unspecified (principal); N18.30 Chronic kidney disease, stage 3 unspecified; I50.9 Heart failure, unspecified; I48.91 Unspecified atrial fibrillation; N20.0 Calculus of kidney
CPT/HCPCS: 36415; 80053; 80197; 82306; 82607; 84443; 85027; 85610

== ENCOUNTER 2022-11-04 08:52 | Outpatient (RCR) | payer OTHER, MEDICARE, SELFPAY ==
[2022-11-04 10:20] LABS: Basophils Percent Auto 0.2 % (0.2-1.2); Eosinophils Absolute Auto 0.2 K/mm3 (0-0.3); Eosinophils Percent Auto 2.9 % (0-4.4); Hematocrit 25.8 % (42.0-52.0); Hemoglobin 7.5 g/dL (14.0-18.0); Immature Granulocyte Absolute 0.02 K/mm3 (0.00-0.031); Immature Granulocyte Percent A 0.4 % (0-0.5); Lymphocytes Absolute Auto 0.71 K/mm3 (0.9-3.2); Lymphocytes Percent Auto 13.8 % (18.3-44.2); Mean Corpuscular HGB Conc 29.1 g/dl (32-36); Mean Corpuscular Hemoglobin 25.8 pg (26-34); Mean Corpuscular Volume 88.7 fl (80-100); Mean Platelet Volume 11.4 fl (7.4-10.4); Monocytes Absolute Auto 0.4 K/mm3 (0.1-0.6); Monocytes Percent Auto 7.6 % (2.6-8.5); Neutrophils Absolute Auto 3.9 K/mm3 (1.3-6.7); Neutrophils Percent Auto 75.1 % (45.5-73.1); Platelet Count Result 169 k/mm3 (150-375); Red Blood Count 2.91 M/mm3 (4.6-6.20); Red Cell Distribution Width 17.1 % (11.5-14.5); White Blood Count 5.1 K/mm3 (4.5-10.0)
[2022-11-04 10:30] LABS: Albumin Level 3.3 g/dL (3.5-5.1); Anion Gap 9 mmol/L (8-16); Blood Urea Nitrogen 53 mg/dL (9-20); Calcium 8.8 mg/dL (8.4-10.2); Carbon Dioxide 25 mmol/L (22-30); Chloride 97 mmol/L (98-107); Estimated Glomerular Filt Rate 36; Glucose 270 mg/dL (65-110); Phosphorus 2.6 mg/dL (2.5-4.5); Potassium 3.4 mmol/L (3.4-5.0); Sodium 131 mmol/L (137-145)
[2022-11-04 10:33] LABS: INR 2.2
[2022-11-04 11:37] LABS: Platelet Estimate Adequate (Adequate)
[2022-11-04 11:38] LABS: Hypochromasia 1+ (NORMAL); Schistocytes None Seen (NORMAL)
[2022-11-07 12:10] LABS: Tacrolimus Prograf 10.3 mcg/L
== END 2023-02-02 23:59 | disposition home or self-care (01) ==
LOC: ANHLAB 08:52
PROVIDERS: PCP Internal Medicine; Visit Provider Internal Medicine
DX: Z51.81 Encounter for therapeutic drug level monitoring (principal); Z94.0 Kidney transplant status; E78.2 Mixed hyperlipidemia; M1A.09X0 Idiopathic chronic gout, multiple sites, without tophus (tophi); D63.8 Anemia in other chronic diseases classified elsewhere; Z79.899 Other long term (current) drug therapy; Z79.01 Long term (current) use of anticoagulants
CPT/HCPCS: 36415; 80069; 80197; 82728; 82746; 83036; 83540; 83550; 85025; 85610

== ENCOUNTER 2022-11-04 08:59 | Outpatient (CLI) | payer MEDICARE, SELFPAY ==
[2022-11-04 10:55] LABS: Iron 45 ug/dL (49-181)
[2022-11-04 11:07] LABS: Percent Iron Saturation 18 % (20-50)
[2022-11-04 11:40] LABS: Folic Acid > 20.0 ng/mL (2.76->20)
== END 2022-11-04 09:00 | disposition home or self-care (01) ==
PROVIDERS: PCP Internal Medicine; Visit Provider Family Medicine
DX: E11.9 Type 2 diabetes mellitus without complications (principal)
CPT/HCPCS: 36415; 82728; 82746; 83036; 83540; 83550

== ENCOUNTER 2022-11-10 14:32 | Outpatient (CLI) | payer MEDICARE, SELFPAY ==
[2022-11-10 16:07] LABS: Hematocrit 28.2 % (42.0-52.0); Hemoglobin 8.3 g/dL (14.0-18.0); Mean Corpuscular HGB Conc 29.4 g/dl (32-36); Mean Corpuscular Hemoglobin 25.3 pg (26-34); Mean Platelet Volume 10.9 fl (7.4-10.4); Platelet Count Result 186 k/mm3 (150-375); Red Blood Count 3.28 M/mm3 (4.6-6.20); Red Cell Distribution Width 17.6 % (11.5-14.5)
[2022-11-10 16:19] LABS: Anion Gap 10 mmol/L (8-16); Blood Urea Nitrogen 50 mg/dL (9-20); Calcium 8.9 mg/dL (8.4-10.2); Carbon Dioxide 26 mmol/L (22-30); Chloride 98 mmol/L (98-107); Estimated Glomerular Filt Rate 36; Glucose 248 mg/dL (65-110); Potassium 3.4 mmol/L (3.4-5.0); Sodium 134 mmol/L (137-145)
== END 2022-11-10 14:33 | disposition home or self-care (01) ==
PROVIDERS: PCP Internal Medicine; Visit Provider Family Medicine
DX: I50.20 Unspecified systolic (congestive) heart failure (principal)
CPT/HCPCS: 36415; 80048; 85027

== ENCOUNTER 2022-11-13 13:48 | Outpatient (CLI) | payer OTHER, MEDICARE, SELFPAY ==
[2022-11-13 14:48] LABS: INR 3.6; Prothrombin Time 39.1 Seconds (11.1-14.7)
== END 2022-11-13 13:49 | disposition home or self-care (01) ==
LOC: ANHLAB 13:53
PROVIDERS: PCP Internal Medicine; Visit Provider Family Medicine
DX: I48.91 Unspecified atrial fibrillation (principal)
CPT/HCPCS: 36415; 85610

== ENCOUNTER 2023-02-05 11:38 | Outpatient (CLI) | payer MEDICARE, SELFPAY ==
[2023-02-05 13:04] LABS: Basophils Percent Auto 0.2 % (0.2-1.2); Eosinophils Absolute Auto 0.2 K/mm3 (0-0.3); Hematocrit 31.4 % (42.0-52.0); Hemoglobin 9.2 g/dL (14.0-18.0); Immature Granulocyte Absolute 0.01 K/mm3 (0.00-0.031); Immature Granulocyte Percent A 0.2 % (0-0.5); Immature Platelet Fraction Pct 5.4 % (0.9-11.2); Lymphocytes Absolute Auto 0.89 K/mm3 (0.9-3.2); Lymphocytes Percent Auto 19.6 % (18.3-44.2); Mean Corpuscular HGB Conc 29.3 g/dl (32-36); Mean Corpuscular Hemoglobin 25.7 pg (26-34); Mean Corpuscular Volume 87.7 fl (80-100); Monocytes Absolute Auto 0.4 K/mm3 (0.1-0.6); Monocytes Percent Auto 8.6 % (2.6-8.5); Neutrophils Absolute Auto 3.1 K/mm3 (1.3-6.7); Neutrophils Percent Auto 67.4 % (45.5-73.1); Platelet Count Result 97 k/mm3 (150-375); Red Blood Count 3.58 M/mm3 (4.6-6.20); Red Cell Distribution Width 20.1 % (11.5-14.5); White Blood Count 4.5 K/mm3 (4.5-10.0)
[2023-02-05 13:19] LABS: Alanine Aminotransferase 42 U/L (6-50); Albumin Level 3.6 g/dL (3.5-5.1); Alkaline Phosphatase 65 U/L (38-126); Anion Gap 8 mmol/L (8-16); Aspartate Amino Transferase 46 U/L (17-59); Blood Urea Nitrogen 84 mg/dL (9-20); Calcium 9.2 mg/dL (8.4-10.2); Carbon Dioxide 21 mmol/L (22-30); Chloride 107 mmol/L (98-107); Cholesterol 132 mg/dL (0-200); Estimated Glomerular Filt Rate 34; Glucose 157 mg/dL (65-110); HDL Direct 33 mg/dL; Phosphorus 3.4 mg/dL (2.5-4.5); Potassium 4.3 mmol/L (3.4-5.0); Sodium 136 mmol/L (137-145); Triglycerides 93 mg/dL (<150)
[2023-02-05 13:24] LABS: LDL Cholesterol Direct 71 mg/dL
[2023-02-05 13:34] LABS: Microalbumin Urine Random 21.4 mg/L (0-16.7)
[2023-02-05 13:35] LABS: Hemoglobin A1C 7.7 % (<5.7)
[2023-02-05 13:47] LABS: Platelet Estimate Decreased (Adequate); Schistocytes Rare (NORMAL)
[2023-02-05 13:48] LABS: Anisocytosis 1+ (NORMAL); Burr Cells 1+ (NORMAL); Hypochromasia 1+ (NORMAL); Poikilocytosis 1+ (NORMAL)
[2023-02-05 14:19] LABS: Creatinine Urine 28.6 mg/dL; MALB Creatinine Ratio 74.8 mg/g (0-30)
[2023-02-06 07:41] LABS: Vitamin D 25 Hydroxy 44.7 ng/mL
[2023-02-08 08:41] LABS: Tacrolimus Prograf 4.8 mcg/L
== END 2023-02-05 11:39 | disposition home or self-care (01) ==
LOC: ANHLAB 11:41
PROVIDERS: PCP Internal Medicine
DX: E11.22 Type 2 diabetes mellitus with diabetic chronic kidney disease (principal); I10 Essential (primary) hypertension; Z13.29 Encounter for screening for other suspected endocrine disorder; Z79.899 Other long term (current) drug therapy; E55.9 Vitamin D deficiency, unspecified; E78.2 Mixed hyperlipidemia; Z09 Encounter for follow-up examination after completed treatment for conditions other than malignant neoplasm; Z94.0 Kidney transplant status
CPT/HCPCS: 36415; 80053; 80061; 80197; 82043; 82306; 83036; 84100; 84439; 84443; 85025; 85055

== ENCOUNTER 2023-03-09 09:32 | Outpatient (RCR) | payer MEDICARE, SELFPAY ==
[2023-03-09 10:44] LABS: Basophils Percent Auto 0.2 % (0.2-1.2); Eosinophils Absolute Auto 0.3 K/mm3 (0-0.3); Eosinophils Percent Auto 5.7 % (0-4.4); Hematocrit 35.8 % (42.0-52.0); Hemoglobin 10.5 g/dL (14.0-18.0); Immature Granulocyte Absolute 0.01 K/mm3 (0.00-0.031); Immature Granulocyte Percent A 0.2 % (0-0.5); Lymphocytes Absolute Auto 1.58 K/mm3 (0.9-3.2); Lymphocytes Percent Auto 33.5 % (18.3-44.2); Mean Corpuscular HGB Conc 29.3 g/dl (32-36); Mean Corpuscular Hemoglobin 26.4 pg (26-34); Mean Corpuscular Volume 90.2 fl (80-100); Mean Platelet Volume 12.4 fl (7.4-10.4); Monocytes Absolute Auto 0.4 K/mm3 (0.1-0.6); Monocytes Percent Auto 9.3 % (2.6-8.5); Neutrophils Absolute Auto 2.4 K/mm3 (1.3-6.7); Neutrophils Percent Auto 51.1 % (45.5-73.1); Platelet Count Result 125 k/mm3 (150-375); Red Blood Count 3.97 M/mm3 (4.6-6.20); Red Cell Distribution Width 18.1 % (11.5-14.5); White Blood Count 4.7 K/mm3 (4.5-10.0)
[2023-03-09 11:00] LABS: INR 1.8; Prothrombin Time 22.1 Seconds (11.1-14.7)
[2023-03-09 11:18] LABS: Anisocytosis 1+ (NORMAL); Hypochromasia 1+ (NORMAL); Platelet Estimate Adequate (Adequate); Schistocytes None Seen (NORMAL)
[2023-03-11 08:34] LABS: Tacrolimus Prograf 3.1 mcg/L
== END 2023-03-13 14:00 | disposition home or self-care (01) ==
LOC: ANHLAB 09:32
PROVIDERS: PCP Internal Medicine; Referring Provider Internal Medicine; Visit Provider Internal Medicine
DX: Z51.81 Encounter for therapeutic drug level monitoring (principal); E78.2 Mixed hyperlipidemia; Z94.0 Kidney transplant status; Z79.01 Long term (current) use of anticoagulants; Z79.899 Other long term (current) drug therapy
CPT/HCPCS: 36415; 80197; 85025; 85610

== ENCOUNTER 2023-06-22 10:18 | Outpatient (RCR) | payer MEDICARE, SELFPAY ==
[2023-03-30 10:52] LABS: Basophils Percent Auto 0.4 % (0.2-1.2); Eosinophils Absolute Auto 0.2 K/mm3 (0-0.3); Eosinophils Percent Auto 4.7 % (0-4.4); Hematocrit 34.6 % (42.0-52.0); Hemoglobin 10.4 g/dL (14.0-18.0); Immature Granulocyte Absolute 0.02 K/mm3 (0.00-0.031); Immature Granulocyte Percent A 0.4 % (0-0.5); Lymphocytes Percent Auto 34.2 % (18.3-44.2); Mean Corpuscular HGB Conc 30.1 g/dl (32-36); Mean Corpuscular Volume 89.9 fl (80-100); Mean Platelet Volume 10.9 fl (7.4-10.4); Monocytes Absolute Auto 0.4 K/mm3 (0.1-0.6); Monocytes Percent Auto 8.1 % (2.6-8.5); Neutrophils Absolute Auto 2.4 K/mm3 (1.3-6.7); Neutrophils Percent Auto 52.2 % (45.5-73.1); Platelet Count Result 111 k/mm3 (150-375); Red Blood Count 3.85 M/mm3 (4.6-6.20); Red Cell Distribution Width 17.3 % (11.5-14.5); White Blood Count 4.7 K/mm3 (4.5-10.0)
[2023-03-30 11:07] LABS: Albumin Level 3.8 g/dL (3.5-5.1); Anion Gap 8 mmol/L (8-16); Blood Urea Nitrogen 83 mg/dL (9-20); Calcium 9.8 mg/dL (8.4-10.2); Carbon Dioxide 26 mmol/L (22-30); Chloride 105 mmol/L (98-107); Estimated Glomerular Filt Rate 39; Glucose 297 mg/dL (65-110); Phosphorus 4.1 mg/dL (2.5-4.5); Potassium 3.9 mmol/L (3.4-5.0); Sodium 139 mmol/L (137-145)
[2023-03-30 11:13] LABS: INR 2.3; Prothrombin Time 27.2 Seconds (11.1-14.7)
[2023-04-02 00:06] LABS: Tacrolimus Prograf 3.8 mcg/L
[2023-05-01 15:15] LABS: Basophils Percent Auto 0.6 % (0.2-1.2); Eosinophils Absolute Auto 0.3 K/mm3 (0-0.3); Eosinophils Percent Auto 5.8 % (0-4.4); Hematocrit 36.6 % (42.0-52.0); Hemoglobin 11.2 g/dL (14.0-18.0); Immature Granulocyte Absolute 0.01 K/mm3 (0.00-0.031); Immature Granulocyte Percent A 0.2 % (0-0.5); Lymphocytes Absolute Auto 1.46 K/mm3 (0.9-3.2); Lymphocytes Percent Auto 29.3 % (18.3-44.2); Mean Corpuscular HGB Conc 30.6 g/dl (32-36); Mean Corpuscular Hemoglobin 27.6 pg (26-34); Mean Corpuscular Volume 90.1 fl (80-100); Mean Platelet Volume 11.3 fl (7.4-10.4); Monocytes Absolute Auto 0.5 K/mm3 (0.1-0.6); Monocytes Percent Auto 9.4 % (2.6-8.5); Neutrophils Absolute Auto 2.7 K/mm3 (1.3-6.7); Neutrophils Percent Auto 54.7 % (45.5-73.1); Platelet Count Result 117 k/mm3 (150-375); Red Blood Count 4.06 M/mm3 (4.6-6.20); Red Cell Distribution Width 16.8 % (11.5-14.5)
[2023-05-01 15:29] LABS: INR 1.6; Prothrombin Time 19.8 Seconds (11.1-14.7)
[2023-05-01 16:40] LABS: Alanine Aminotransferase 21 U/L (6-50); Alkaline Phosphatase 62 U/L (38-126); Aspartate Amino Transferase 25 U/L (17-59); Bilirubin,Total 0.7 mg/dL (0.2-1.3); Cholesterol 139 mg/dL (0-200); HDL Direct 35 mg/dL; Triglycerides 123 mg/dL (<150)
[2023-05-01 16:51] LABS: LDL Cholesterol Direct 79 mg/dL
[2023-05-04 08:59] LABS: Tacrolimus Prograf 5.5 mcg/L
[2023-05-25 10:28] LABS: Basophils Percent Auto 0.2 % (0.2-1.2); Eosinophils Absolute Auto 0.2 K/mm3 (0-0.3); Eosinophils Percent Auto 4.8 % (0-4.4); Hematocrit 36.2 % (42.0-52.0); Hemoglobin 11.3 g/dL (14.0-18.0); Immature Granulocyte Absolute 0.01 K/mm3 (0.00-0.031); Immature Granulocyte Percent A 0.2 % (0-0.5); Lymphocytes Absolute Auto 1.69 K/mm3 (0.9-3.2); Lymphocytes Percent Auto 38.3 % (18.3-44.2); Mean Corpuscular HGB Conc 31.2 g/dl (32-36); Mean Corpuscular Hemoglobin 27.8 pg (26-34); Mean Corpuscular Volume 89.2 fl (80-100); Mean Platelet Volume 10.1 fl (7.4-10.4); Monocytes Absolute Auto 0.5 K/mm3 (0.1-0.6); Monocytes Percent Auto 10.9 % (2.6-8.5); Neutrophils Percent Auto 45.6 % (45.5-73.1); Platelet Count Result 101 k/mm3 (150-375); Red Blood Count 4.06 M/mm3 (4.6-6.20); Red Cell Distribution Width 15.7 % (11.5-14.5); White Blood Count 4.4 K/mm3 (4.5-10.0)
[2023-05-25 10:39] LABS: Albumin Level 4.1 g/dL (3.5-5.1); Anion Gap 7 mmol/L (4-12); Blood Urea Nitrogen 57 mg/dL (9-20); Calcium 9.6 mg/dL (8.4-10.2); Carbon Dioxide 28 mmol/L (22-30); Chloride 103 mmol/L (98-107); Estimated Glomerular Filt Rate 34; Glucose 162 mg/dL (65-110); Phosphorus 3.3 mg/dL (2.5-4.5); Potassium 4.2 mmol/L (3.4-5.0); Sodium 138 mmol/L (137-145)
[2023-05-25 10:42] LABS: INR 2.1; Prothrombin Time 25.1 Seconds (11.1-14.7)
[2023-05-28 01:03] LABS: Tacrolimus Prograf 5.2 mcg/L
[2023-06-22 12:00] LABS: Basophils Percent Auto 0.2 % (0.2-1.2); Eosinophils Absolute Auto 0.3 K/mm3 (0-0.3); Eosinophils Percent Auto 5.4 % (0-4.4); Hematocrit 36.9 % (42.0-52.0); Hemoglobin 11.2 g/dL (14.0-18.0); Immature Granulocyte Absolute 0.01 K/mm3 (0.00-0.031); Immature Granulocyte Percent A 0.2 % (0-0.5); Lymphocytes Absolute Auto 1.43 K/mm3 (0.9-3.2); Lymphocytes Percent Auto 28.7 % (18.3-44.2); Mean Corpuscular HGB Conc 30.4 g/dl (32-36); Mean Corpuscular Hemoglobin 27.6 pg (26-34); Mean Corpuscular Volume 90.9 fl (80-100); Mean Platelet Volume 11.1 fl (7.4-10.4); Monocytes Absolute Auto 0.5 K/mm3 (0.1-0.6); Neutrophils Absolute Auto 2.8 K/mm3 (1.3-6.7); Neutrophils Percent Auto 56.5 % (45.5-73.1); Platelet Count Result 107 k/mm3 (150-375); Red Blood Count 4.06 M/mm3 (4.6-6.20); Red Cell Distribution Width 15.2 % (11.5-14.5)
[2023-06-22 12:10] LABS: INR 3.4
[2023-06-22 12:20] LABS: Phosphorus 3.4 mg/dL (2.5-4.5)
[2023-06-24 16:13] LABS: Tacrolimus Prograf 4.8 mcg/L
== END 2023-06-28 23:59 | disposition home or self-care (01) ==
LOC: ANHLAB 10:18
PROVIDERS: PCP Internal Medicine; Referring Provider Internal Medicine; Visit Provider Internal Medicine
DX: Z51.81 Encounter for therapeutic drug level monitoring (principal); E78.2 Mixed hyperlipidemia; Z94.0 Kidney transplant status; Z79.01 Long term (current) use of anticoagulants; Z79.899 Other long term (current) drug therapy
CPT/HCPCS: 36415; 80053; 80061; 80069; 80076; 80197; 84100; 84550; 85025; 85610

== ENCOUNTER 2023-08-24 12:05 | Outpatient (RCR) | payer MEDICARE, SELFPAY ==
[2023-08-26 08:58] LABS: Tacrolimus Prograf 7.3 mcg/L
== END 2023-11-22 23:59 | disposition home or self-care (01) ==
LOC: ANHLAB 12:05
PROVIDERS: PCP Internal Medicine; Referring Provider Internal Medicine Cardiovascular Disease; Visit Provider Internal Medicine
DX: E78.2 Mixed hyperlipidemia (principal); Z79.01 Long term (current) use of anticoagulants; Z79.899 Other long term (current) drug therapy; Z94.0 Kidney transplant status
CPT/HCPCS: 36415; 80053; 80061; 80197; 82248; 83036; 84100; 84439; 84443; 84550; 85025; 85610

== ENCOUNTER 2023-08-24 12:15 | Outpatient (CLI) | payer MEDICARE, SELFPAY ==
[2023-08-24 13:20] LABS: Basophils Percent Auto 0.2 % (0.2-1.2); Eosinophils Absolute Auto 0.2 K/mm3 (0-0.3); Eosinophils Percent Auto 3.6 % (0-4.4); Hematocrit 32.5 % (42.0-52.0); Hemoglobin 10.2 g/dL (14.0-18.0); Immature Granulocyte Absolute 0.01 K/mm3 (0.00-0.031); Immature Granulocyte Percent A 0.2 % (0-0.5); Lymphocytes Absolute Auto 1.21 K/mm3 (0.9-3.2); Lymphocytes Percent Auto 24.1 % (18.3-44.2); Mean Corpuscular HGB Conc 31.4 g/dl (32-36); Mean Corpuscular Hemoglobin 27.4 pg (26-34); Mean Corpuscular Volume 87.4 fl (80-100); Mean Platelet Volume 10.8 fl (7.4-10.4); Monocytes Absolute Auto 0.4 K/mm3 (0.1-0.6); Monocytes Percent Auto 8.5 % (2.6-8.5); Neutrophils Absolute Auto 3.2 K/mm3 (1.3-6.7); Neutrophils Percent Auto 63.4 % (45.5-73.1); Platelet Count Result 112 k/mm3 (150-375); Red Blood Count 3.72 M/mm3 (4.6-6.20); Red Cell Distribution Width 15.1 % (11.5-14.5)
[2023-08-24 13:35] LABS: Alanine Aminotransferase 29 U/L (6-50); Albumin Level 4.1 g/dL (3.5-5.1); Alkaline Phosphatase 66 U/L (38-126); Anion Gap 11 mmol/L (4-12); Aspartate Amino Transferase 29 U/L (17-59); Bilirubin Indirect 0.3 mg/dL (0-1.1); Bilirubin,Total 0.8 mg/dL (0.2-1.3); Blood Urea Nitrogen 69 mg/dL (9-20); Calcium 9.6 mg/dL (8.4-10.2); Carbon Dioxide 23 mmol/L (22-30); Chloride 101 mmol/L (98-107); Cholesterol 140 mg/dL (0-200); Estimated Glomerular Filt Rate 26; Glucose 175 mg/dL (65-110); HDL Direct 36 mg/dL; Phosphorus 3.5 mg/dL (2.5-4.5); Potassium 4.1 mmol/L (3.4-5.0); Sodium 135 mmol/L (137-145); Triglycerides 150 mg/dL (<150)
[2023-08-24 13:39] LABS: Hemoglobin A1C 7.1 % (<5.7)
[2023-08-24 13:46] LABS: LDL Cholesterol Direct 76 mg/dL
[2023-08-24 14:11] LABS: Free T4 Free Thyroxine 1.39 ng/mL (0.78-2.19)
== END 2023-08-24 12:16 | disposition home or self-care (01) ==
PROVIDERS: PCP Internal Medicine; Visit Provider Internal Medicine
DX: E11.22 Type 2 diabetes mellitus with diabetic chronic kidney disease (principal); I10 Essential (primary) hypertension; Z13.29 Encounter for screening for other suspected endocrine disorder; Z79.899 Other long term (current) drug therapy
CPT/HCPCS: 36415; 80053; 80061; 82248; 83036; 84100; 84439; 84443; 85025